=== PATIENT | female | born 1970 | race Caucasian/White ===

== ENCOUNTER 2020-12-24 13:19 | Observation (INO) ==
[2020-12-24] MEDS ORDERED: ALBUT/IPRATROP 3MG/0.5MG NEB 3 ML VIAL NEB ONE ×2 (16:23→18:29)
[2020-12-24] MEDS ORDERED: SODIUM CHLORIDE 0.9% 1000ML 1,000 ML IV STA (16:23)
[2020-12-24] MEDS ORDERED: methylPREDNISolone 125 MG/2 ML VIAL IV STA (16:23)
[2020-12-24] MEDS ORDERED: guaiFENesin 600 MG TABCR PO STA (16:23)
--- NOTE | 2020-12-24 16:37 | Emergency Department Note ---
Impression & Plan COPD exacerbation, Acute dyspnea, Chest tightness ED Provider Note NAME: ISAIAS OLEARY AGE: 50 SEX: F ARRIVES VIA: Walk-In INFORMANT: Patient, ED PROVIDER(S): Andrew Leonard MD CHIEF COMPLAINT: Shortness of breath PLAN: Disposition: Admit MEDICAL DECISION MAKING: The patient is a pleasant 50 woman who presents to the emergency department with worsening shortness of breath, cough and wheezing in the setting of having the development of COPD/asthma symptoms over numerous months where she was started on inhaler by her PCP but reports worsening over the past couple of days with development of yellow-tinged thick sputum. She denies fevers, nausea, vomiting, diarrhea or urinary symptoms. On arrival the patient is uncomfortable mildly dyspneic with mild increased work of breathing but no acute distress, afebrile stable vital signs. She appears clinically dry. She has scattered wheezes and rhonchi. Abdomen is benign. EKG without overt acute ischemia. CXR negative for acute cardiopulmonary process. WBC 14K. H/H and platelets wnl. Chemistry without acidosis. Electrolytes unremarkable. LFTs without significant abnormality. Troponin negative/undetectable. Covid-19 PCR negative. Patient was treated with IVF hydration, solumedrol, guaifenesin, and hour-long continuous duoneb. Upon re-evaluation the patient did have improvement but still with diffuse wheezes and mild WOB. She was given Azithromycin for COPD exa cerbation given severity with yellow thick sputum. A second hour-long continuous duoneb was administered and she has additional improve but still with diffuse wheezes. Thus, she did agree with plan for admission for further management. Case was discussed with Dr. Man, [facility] hospitalist, who will evaluate the patient for admission. Triage Nursing notes reviewed and agree them. Prior medical records reviewed Vital Signs: reviewed and remarkable for no significant abnormalities Differential diagnosis: Reactive airway disease, pneumonia, pneumothorax, COPD, CHF, infections, cardiac ischemia, pulmonary embolism, musculoskeletal, gastrointestinal, as well as other pathologies. ER treatment provided: See below. Diagnostics interpreted by me: ECG: NSR, 83 bpm, no ectopy, no overt ST elevation or depression. Cardiac Monitoring: An order for continuous cardiac monitoring was placed and demonstrated NSR, 83 bpm, no ectopy. Laboratory studies: See below Imaging studies: See below Consultation(s): Case was discussed with Dr. Man, [facility] hospitalist, who will evaluate the patient for admission. HPI: The patient is a pleasant 50 woman who presents emergency department with worsening shortness of breath, cough and wheezing in the setting of having the development of COPD/asthma symptoms over numerous months where she was started on inhaler by her PCP but reports worsening over the past couple of days with development of yellow-tinged thick sputum. She denies fevers, nausea, vomiting, diarrhea or urinary symptoms. ROS: See above HPI for pertinent positives & negatives. A total of 10 systems reviewed and were otherwise negative. PAST MEDICAL HISTORY:See Below PAST SURGICAL HISTORY:See Below FAMILY HISTORY:See Below SOCIAL HISTORY:See Below HOME MEDICATIONS:See Below ALLERGIES:See Below VITALS:See Below PHYSICAL EXAMINATION: GENERAL: Awake, alert, uncomfortable-appearing, in no distress HENT: Normocephalic, atraumatic. Oropharynx with dry mucous membranes and otherwise unremarkable. EYES: Normal conjunctiva. Sclera non-icteric. NECK: Supple. No nuchal rigidity. FROM. No JVD. RESPIRATORY: Scattered wheezes and rhonchi. Mildly dyspneic with mild increased work of breathing CARDIAC: Regular rate, normal rhythm. Extremities warm and well perfused. Pulses equal. ABDOMEN: Soft, non-distended. No tenderness to palpation. No rebound or guarding. No masses. RECTAL: Deferred. MUSCULOSKELETAL: Chest examination reveals no tenderness. The back is sy mmetrical on inspection without obvious abnormality. There is no CVA tenderness to palpation. No joint edema. LOWER EXTREMITIES: Calves are equal size bilaterally and non-tender. No edema. No discoloration. NEURO: Normal sensorium. No sensory or motor deficits noted. SKIN: No rash or jaundice noted. ED COURSE: Critical Care: I have personally spent greater than 35 minutes of critical care time in the direct management of this patient. This includes bedside care, interpretation of diagnostic studies, and testing, discussion with consultants, patient, and family members, and other required patient management activities. This 35 minutes is in excess of all separately billable procedures. Andrew Leonard MD Past Med/Surg History Social History Smoking Status: Never smoker Hx Alcohol Use: No Hx Substance Use: No Preferred Language: Telugu Communication Ability: Effective Undercoat Sprayer Required: No Beliefs That Will Affect Care: None Current Living Situation: Family Current Living Situation Comment: own home Other Information That Helps Us Care for You: No Feels Safe at Home: Yes Assistive Devices: None Allergies Allergies Allergy/AdvReac Type Severity Reaction Status Date / Time metronidazole AdvReac Intermediate NAUSEA AND Verified 06/09/20 12:01 VOMITING codeine AdvReac ITCHY AND Verified 06/09/20 12:02 HEADACHE Home Meds Home Medications Medication Instructions Recorded Confirmed prednisone 5 mg tablet 5 mg PO DAILY 12/24/20 12/24/20 Previous Rx's Medication Instructions Recorded albuterol sulfate 90 mcg/actuation 2 inh INHALATION Q4H PRN #8.5 g 06/09/20 aerosol inhaler benzonatate 100 mg capsule 100 mg PO TID PRN #20 cap 06/09/20 (Humble Armenta) Results & Data (ED) Vital Signs Vital Signs - 24 hr 12/24/20 13:30 12/24/20 16:50 12/24/20 16:57 Temperature 36.2 C L Temperature Source Temporal Artery Scan Pulse Rate 91 H 92 H 86 Pulse Rate [Apical] 86 Pulse Rate [Right Finger] Pulse Rate from SpO2 Sensor 93 H Pulse Rhythm Regular Pulse Rhythm [Apical] Regular Pulse Strength [Apical] Respiratory Rate 32 H 24 26 H Respiratory Effort / Characteristics Spontaneous Spontaneous Labored Respiratory Depth Normal Normal Respiratory Pattern Regular Blood Pressure 153/80 H Blood Pressure [Left Arm] 152/101 H Blood Pressure Mean 104 Blood Pressure Mean [Left Arm] 118 Blood Pressure Position Sitting Blood Pressure Position [Left Arm] Sitting Pulse Oximetry 96 100 96 Oxygen Delivery Method Room Air Oxymask Oxygen Flow Rate 2 Sepsis Recent Fever Within 48 Hours No Sepsis New/Unexplained Change in Mental Status N/A Sepsis Action Taken by Nursing No Action Required 12/24/20 16:59 12/24/20 17:00 12/24/20 18:00 Temperature Temperature Source Pulse Rate 88 Pulse Rate [Apical] 86 Pulse Rate [Right Finger] 91 H Pulse Rate from SpO2 Sensor 85 Pulse Rhythm Pulse Rhythm [Apical] Regular Pulse Strength [Apical] Respiratory Rate 20 24 24 Respiratory Effort / Characteristics Spontaneous Labored Short of Breath Non-Labored Spontaneous Respiratory Depth Normal Respiratory Pattern Blood Pressure Blood Pressure [Left Arm] 156/106 H Blood Pressure Mean Blood Pressure Mean [Left Arm] 122 Blood Pressure Position Blood Pressure Position [Left Arm] Pulse Oximetry 99 94 Oxygen Delivery Method Nasal Cannula Room Air Oxygen Flow Rate 4 Sepsis Recent Fever Within 48 Hours Sepsis New/Unexplained Change in Mental Status Sepsis Action Taken by Nursing 12/24/20 18:06 12/24/20 18:58 12/24/20 19:00 Temperature Temperature Source Pulse Rate 94 H 84 Pulse Rate [Apical] 91 H Pulse Rate [Right Finger] Pulse Rate from SpO2 Sensor 94 H 85 Pulse Rhythm Pulse Rhythm [Apical] Regular Pulse Strength [Apical] Normal Respiratory Rate 29 H 22 Respiratory Effort / Characteristics Short of Breath Respiratory Depth Respiratory Pattern Blood Pressure Blood Pressure [Left Arm] 135/88 Blood Pressure Mean Blood Pressure Mean [Left Arm] 103 Blood Pressure Position Blood Pressure Position [Left Arm] Pulse Oximetry 95 95 95 Oxygen Delivery Method Room Air Oxygen Flow Rate Sepsis Recent Fever Within 48 Hours Sepsis New/Unexplained Change in Mental Status Sepsis Action Taken by Nursing 12/24/20 19:04 12/24/20 20:00 12/24/20 20:55 Temperature Temperature Source Pulse Rate 102 H Pulse Rate [Apical] 90 103 H Pulse Rate [Right Finger] Pulse Rate from SpO2 Sensor 102 H Pulse Rhythm Pulse Rhythm [Apical] Regular Pulse Strength [Apical] Normal Respiratory Rate 20 25 H 30 H Respiratory Effort / Characteristics Non-Labored Spontaneous Short of Breath Respiratory Depth Respiratory Pattern Blood Pressure Blood Pressure [Left Arm] 144/80 H Blood Pressure Mean Blood Pressure Mean [Left Arm] 101 Blood Pressure Position Blood Pressure Position [Left Arm] Pulse Oximetry 97 97 95 Oxygen Delivery Method Room Air Room Air Oxygen Flow Rate Sepsis Recent Fever Within 48 Hours Sepsis New/Unexplained Change in Mental Status Sepsis Action Taken by Nursing 12/24/20 21:00 Temperature Temperature Source Pulse Rate 105 H Pulse Rate [Apical] Pulse Rate [Right Finger] Pulse Rate from SpO2 Sensor 105 H Pulse Rhythm Pulse Rhythm [Apical] Pulse Strength [Apical] Respiratory Rate 28 H Respiratory Effort / Characteristics Respiratory Depth Respiratory Pattern Blood Pressure Blood Pressure [Left Arm] Blood Pressure Mean Blood Pressure Mean [Left Arm] Blood Pressure Position Blood Pressure Position [Left Arm] Pulse Oximetry 97 Oxygen Delivery Method Oxygen Flow Rate Sepsis Recent Fever Within 48 Hours Sepsis New/Unexplained Change in Mental Status Sepsis Action Taken by Nursing Laboratory Data Attestation: I reviewed the patient's lab results. Result diagrams: 12/24/20 16:58 12/24/20 16:58 Lab Results 12/24/20 12/24/20 12/24/20 Range/Units 16:57 16:58 16:58 WBC 14.09 H (4.8-10.8) K/uL RBC 5.06 (4.2-5.4) M/uL Hgb 14.3 (12.0-16.0) g/dL Hct 42.5 (37-47) % MCV 84.0 (80-100) fL MCH 28.3 (25-34) pg MCHC 33.6 (32-36) g/dL RDW Std Deviation 43.4 (36.4-46.3) fL RDW Coeff of Mark 14.1 (11.5-14.5) % Plt Count 275 (130-400) K/uL MPV 10.8 H (7.4-10.4) fL Immature Gran % (Auto) 0.2 % Neut % (Auto) 80.2 % Lymph % (Auto) 8.7 % Wy[place] % (Auto) 5.3 % Eos % (Auto) 5.5 % Baso % (Auto) 0.1 % Neut # (Auto) 11.29 H (1.4-6.5) K/uL Lymph # (Auto) 1.23 (1.2-3.4) K/uL Wythe # (Auto) 0.75 H (0.11-0.59) K/uL Eos # (Auto) 0.77 H (0-0.5) K/uL Baso # (Auto) 0.02 (0-0.2) K/uL Immature Gran # (Auto) 0.03 H (0.00-0.02) K/uL Sodium 140 (136-145) mmol/L Potassium 3.7 (3.5-5.1) mmol/L Chloride 105 (98-107) mmol/L Carbon Dioxide 26 (21-32) mmol/L Anion Gap 9.0 (3-11) BUN 4 L (7-18) mg/dl Creatinine 0.79 (0.6-1.2) mg/dl Est Cr Clr Drug Dosing 108.5 ml/min Est GFR ( Amer) 101.2 ml/min Est GFR (Non-Af Amer) 87.3 ml/min BUN/Creatinine Ratio 5.4 L (10-20) Glucose 108 H (70-99) mg/dl Calcium 9.6 (8.5-10.1) mg/dl Total Bilirubin 0.3 (0.2-1) mg/dl AST 12 L (15-37) U/L ALT 32 (12-78) U/L Alkaline Phosphatase 74 (45-117) U/L Troponin I < 0.015 (0-0.045) ng/ml Total Protein 7.7 (6.4-8.2) gm/dl Albumin 4.1 (3.4-5.0) gm/dl Globulin 3.6 (2.5-4.0) gm/dl Albumin/Globulin Ratio 1.1 (0.9-2) Lipase 93 (73-393) U/L HCG, Qual Negative (Negative) COVID-19 Eval Order SARS-CoV-2 (PCR) (Negative) 12/24/20 12/24/20 Range/Units 17:10 17:10 WBC (4.8-10.8) K/uL RBC (4.2-5.4) M/uL Hgb (12.0-16.0) g/dL Hct (37-47) % MCV (80-100) fL MCH (25-34) pg MCHC (32-36) g/dL RDW Std Deviation (36.4-46.3) fL RDW Coeff of Mark (11.5-14.5) % Plt Count (130-400) K/uL MPV (7.4-10.4) fL Immature Gran % (Auto) % Neut % (Auto) % Lymph % (Auto) % Wy[place] % (Auto) % Eos % (Auto) % Baso % (Auto) % Neut # (Auto) (1.4-6.5) K/uL Lymph # (Auto) (1.2-3.4) K/uL Wythe # (Auto) (0.11-0.59) K/uL Eos # (Auto) (0-0.5) K/uL Baso # (Auto) (0-0.2) K/uL Immature Gran # (Auto) (0.00-0.02) K/uL Sodium (136-145) mmol/L Potassium (3.5-5.1) mmol/L Chloride (98-107) mmol/L Carbon Dioxide (21-32) mmol/L Anion Gap (3-11) BUN (7-18) mg/dl Creatinine (0.6-1.2) mg/dl Est Cr Clr Drug Dosing ml/min Est GFR ( Amer) ml/min Est GFR (Non-Af Amer) ml/min BUN/Creatinine Ratio (10-20) Glucose (70-99) mg/dl Calcium (8.5-10.1) mg/dl Total Bilirubin (0.2-1) mg/dl AST (15-37) U/L ALT (12-78) U/L Alkaline Phosphatase (45-117) U/L Troponin I (0-0.045) ng/ml Total Protein (6.4-8.2) gm/dl Albumin (3.4-5.0) gm/dl Globulin (2.5-4.0) gm/dl Albumin/Globulin Ratio (0.9-2) Lipase (73-393) U/L HCG, Qual (Negative) COVID-19 Eval Order Covid19 at [facility] SARS-CoV-2 (PCR) NEGATIVE (Negative) Administered Medications Ceftriaxone Sodium 2,000 mg/ (Dextrose) 70 mls @ 100 mls/hr IV Q24H AZUCENA; Protocol Stop: 01/01/21 01:59 Last Infusion: 12/25/20 02:54 Dose: 0 mls/hr Documented by: [id number] Admin: 12/25/20 01:53 Dose: 100 mls/hr Documented by: [id number] Ipratropium Morrison (Ipratropium Morrison Neb Soln 0.02% 2.5 Ml Vial) 0.5 mg INH Q6R AZUCENA Stop: 01/24/21 00:59 Last Admin: 12/25/20 00:54 Dose: 0.5 mg Documented by: [id number] Levalbuterol HCl (Levalbuterol 1.25mg/0.5ml Neb) 1.25 mg INH Q6R AZUCENA Stop: 01/24/21 00:59 Last Admin: 12/25/20 00:54 Dose: 1.25 mg Documented by: [id number] Discontinued Medications Albuterol (Albut/Ipratrop 3mg/0.5mg Neb 3 Ml Vial) 12 ml NEB ONE ONE Stop: 12/24/20 16:24 Last Admin: 12/24/20 16:59 Dose: 12 ml Documented by: [id number] Albuterol (Albut/Ipratrop 3mg/0.5mg Neb 3 Ml Vial) 12 ml NEB ONE ONE Stop: 12/24/20 18:30 Last Admin: 12/24/20 19:04 Dose: 12 ml Documented by: [id number] Azithromycin (Azithromycin 250 Mg Tab) 500 mg PO NOW ONE Stop: 12/24/20 18:30 Last Admin: 12/24/20 18:44 Dose: 500 mg Documented by: [id number] Guaifenesin (Guaifenesin 600 Mg Tabcr) 600 mg PO NOW STA Stop: 12/24/20 16:24 Last Admin: 12/24/20 17:03 Dose: 600 mg Documented by: [id number] Sodium Chloride (Nss 1000ml) 1,000 mls @ 999 mls/hr IV .Q1H1M STA Stop: 12/24/20 17:23 Last Infusion: 12/24/20 19:34 Dose: 0 mls/hr Documented by: [id number] Admin: 12/24/20 17:03 Dose: 999 mls/hr Documented by: [id number] Acetaminophen (Ofirmev) 1,000 mg in 100 mls @ 400 mls/hr IV NOW STA Stop: 12/24/20 19:15 Last Infusion: 12/24/20 19:42 Dose: 0 mls/hr Documented by: [id number] Admin: 12/24/20 19:26 Dose: 400 mls/hr Documented by: [id number] Ketorolac Tromethamine (Ketorolac Tromethamine 15 Mg/Ml Vial) 15 mg IV NOW ONE Stop: 12/24/20 23:25 Last Admin: 12/24/20 23:37 Dose: 15 mg Documented by: [id number] Methylprednisolone (Methylprednisolone 125 Mg/2 Ml Vial) 125 mg IV NOW STA Stop: 12/24/20 16:24 Last Admin: 12/24/20 17:03 Dose: 125 mg Documented by: [id number] Methylprednisolone (Methylprednisolone 40 Mg/Ml Vial) Confirm Administered Dose 40 mg .ROUTE .STK-MED ONE Stop: 12/24/20 22:38 Last Admin: 12/24/20 22:43 Dose: Not Given Documented by: [id number] Imaging Data Radiologist's Impression: Chest X-Ray 12/24/20 16:23 XR chest 1V portable CLINICAL HISTORY: Atypical chest pain TECHNIQUE: Single frontal radiograph of the chest was obtained. Comparison: Comparison is made to chest one view 06/09/2020 FINDINGS: No lines and tubes are seen. The cardiomediastinal silhouette is normal. The lungs are clear. No evidence of pleural effusion or pneumothorax. IMPRESSION: No acute chest disease. ACT 112: Negative or not required by law. Electronically signed by: Braulio Marr M.D. 12/24/2020 4:48 PM Discharge Plan Visit Data Chief Complaint: Shortness of Breath/Dyspnea Stated Complaint: SOB, CHEST TIGHTNESS ED Provider: Andrew Leonard Discharge Problem: COPD exacerbation, Acute dyspnea, Chest tightness Patient Disposition: Admitted As Inpatient Discharge Instructions Interventions: ED Discharge Assessment Last Done: 12/24/20 23:24
--- NOTE | 2020-12-24 16:50 | XRay Report ---
XR chest 1V portable CLINICAL HISTORY: Atypical chest pain TECHNIQUE: Single frontal radiograph of the chest was obtained. Comparison: Comparison is made to chest one view 06/09/2020 FINDINGS: No lines and tubes are seen. The cardiomediastinal silhouette is normal. The lungs are clear. No evid ence of pleural effusion or pneumothorax. IMPRESSION: No acute chest disease. ACT 112: Negative or not required by law. Electronically signed by: Braulio Marr M.D. 12/24/2020 4:48 PM
[2020-12-24 17:04] LABS: Basophils # (auto) 0.02 K/uL (0-0.2); Basophils % (auto) 0.1 %; Eosinophils # (auto) 0.77 K/uL (0-0.5); Eosinophils % (auto) 5.5 %; Hematocrit (blood only) 42.5 % (37-47); Hemoglobin 14.3 g/dL (12.0-16.0); Immature Granulocytes # (auto) 0.03 K/uL (0.00-0.02); Immature Granulocytes % (auto) 0.2 %; Lymphocytes # (auto) 1.23 K/uL (1.2-3.4); Lymphocytes % (auto) 8.7 %; Mean Corpuscular Hemoglobin 28.3 pg (25-34); Mean Corpuscular Hgb Conc 33.6 g/dL (32-36); Mean Platelet Volume 10.8 fL (7.4-10.4); Monocytes # (auto) 0.75 K/uL (0.11-0.59); Monocytes % (auto) 5.3 %; Neutrophils # (auto) 11.29 K/uL (1.4-6.5); Neutrophils % (auto) 80.2 %; Platelet Count 275 K/uL (130-400); RDW Coefficient of Variation 14.1 % (11.5-14.5); RDW Standard Deviation 43.4 fL (36.4-46.3); Red Blood Count 5.06 M/uL (4.2-5.4); White Blood Count 14.09 K/uL (4.8-10.8)
[2020-12-24 17:21] LABS: Alanine Aminotransferase 32 U/L (12-78); Albumin Level 4.1 gm/dl (3.4-5.0); Aspartate Aminotransferase 12 U/L (15-37); BUN Creatinine Ratio 5.4 (10-20); Blood Urea Nitrogen 4 mg/dl (7-18); Calcium 9.6 mg/dl (8.5-10.1); Carbon Dioxide 26 mmol/L (21-32); Chloride 105 mmol/L (98-107); Creatinine Clr Calc Pharmacy 108.5 ml/min; Est GFR (African American) 101.2 ml/min; Est GFR (Non-African American) 87.3 ml/min; Glucose 108 mg/dl (70-99); Lipase 93 U/L (73-393); Potassium 3.7 mmol/L (3.5-5.1); Sodium 140 mmol/L (136-145)
[2020-12-24 17:26] LABS: Albumin Globulin Ratio 1.1 (0.9-2); Alkaline Phosphatase 74 U/L (45-117); Bilirubin,Total 0.3 mg/dl (0.2-1); Globulin 3.6 gm/dl (2.5-4.0); Total Protein 7.7 gm/dl (6.4-8.2); Troponin I < 0.015 ng/ml (0-0.045)
[2020-12-24 17:28] LABS: Pregnancy Test, Serum Negative (Negative)
[2020-12-24] MEDS ORDERED: AZITHROMYCIN 250 MG TAB PO ONE (18:29)
[2020-12-24] MEDS ORDERED: ACETAMINOPHEN 1,000 MG/100 ML VIAL IV STA (19:01)
[2020-12-24] MEDS ORDERED: KETOROLAC TROMETHAMINE 15 MG/ML VIAL IV ONE (23:24)
--- NOTE | 2020-12-24 23:25 | History and Physical Report ---
DATE OF ADMISSION: 12/24/2020. CHIEF COMPLAINT: Shortness of breath. HISTORY OF PRESENT ILLNESS: A 50-year-old female with past medical history significant for irritable bowel syndrome, GERD, obesity, degenerative disk disease, who presents with shortness of breath and cough. The patient says in February she was having sob symptoms. She was treated with Z-SALOMON and prednisone in the past and last couple of weeks ago, she was placed on prednisone 5 mg daily, but again her symptoms got worse in the last few days and today morning, she was feeling very short of breath, went to PCP's office, and they sent her here. She was initially tachypneic and tachycardic, but after steroids and breathing treatment, she is feeling better now. Denies any fevers. Earlier, she was feeling chest tightness like someone sitting on the chest, but it is better now. The chest pain was more with taking deep breath and cough. Denies any nausea, vomiting. No abdominal pain. Normal bowel and bladder movements. No blood in the stools or black stools. No hematuria. Sometimes she has orthopnea. She is ambulating okay. She has headache from shortness of breath. No blurred visions, no earache, no runny nose, no sore throat. Appetite is not that great. ALLERGIES: METRONIDAZOLE, CODEINE. PAST MEDICAL HISTORY: As mentioned above. PAST SURGICAL HISTORY: Ligation of oviducts, removal of ovaries, cholecystectomy. MEDICATIONS: The patient is on albuterol 2 puffs inhalation q. 4 hours p.r.n., Tessalon Perles 100 mg p.o. t.i.d., prednisone 5 mg p.o. daily. FAMILY HISTORY: Significant for father has diabetes, hypertension, obesity; mother has obesity, diabetes, hypertension. SOCIAL HISTORY: Single, daughter lives with her. Alcohol occasionally. 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 REVIEW OF SYSTEMS: As per HPI. Rest of the review of systems is negative. PHYSICAL EXAMINATION: GENERAL: The patient is obese, not in acute distress. VITAL SIGNS: Temperature 36.2, pulse 103, respiratory rate 30, blood pressure 144/80, oxygen 95% on room air. HEENT: Pupils equal, round and reactive to light. Oral mucosa moist. NECK: No JVD, no neck masses. CARDIOVASCULAR: S1 and S2 heard, tachycardia. No murmurs. RESPIRATORY SYSTEM: Normal AP diameter. No accessory muscle use, but bilateral rhonchi and wheezing heard. ABDOMEN: Soft, bowel sounds present, nontender, no distention. CENTRAL NERVOUS SYSTEM: Cranial nerves II-XII grossly intact, nonfocal. EXTREMITIES: Trace pedal edema, no erythema seen. LABORATORY DATA: WBC 14, hemoglobin 14.3, hematocrit 42.5, platelets 275. Sodium 140, potassium 3.7, chloride 105, bicarbonate 26, BUN 4, creatinine 0.7, serum glucose 108, calcium 9.6, total bilirubin 0.3, AST 12, ALT 32, alkaline phosphatase 74. Troponin I less than 0.015. Lipase 93. HCG qualitative negative. SARS-CoV-2 PCR negative. IMAGING DATA: Chest x-ray, no acute disease in the chest. EKG: Normal sinus rhythm, rate of 83, no significant change was found. ASSESSMENT AND PLAN: This is a 50-year-old female who presents with shortness of breath. 1. 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 Will treat with steroids, breathing treatments, empiric antibiotics, and consult pulmonary in the a.m. for further recommendations. Monitor in the tele floor. 2. Irritable bowel syndrome: Will monitor. 3. Obesity: Needs counseling. 4. Deep venous thrombosis prophylaxis: Lovenox. DISPOSITION: Admit to tele floor. Expect to discharge home and follow up with family doctor. Level 1 full code. Job ID: [id number] [facility]
[2020-12-25] MEDS ORDERED: ONDANSETRON INJ 2 MG/ML 2 ML VIAL IV PRN (00:32)
[2020-12-25] MEDS ORDERED: LEVALBUTEROL HCL 1.25 MG/3 ML NEB NEB PRN (00:32)
[2020-12-25] MEDS ORDERED: NITROGLYCERIN SL 0.4 MG/TAB TAB SL PRN (00:32)
[2020-12-25] MEDS ORDERED: ACETAMINOPHEN 325 MG TAB PO PRN (00:32)
[2020-12-25] MEDS: IPRATROPIUM BROMIDE NEB SOLN 0.02% 2.5 ML VIAL INH SCH ×4 (00:54→19:00)
[2020-12-25] MEDS: LEVALBUTEROL 1.25MG/0.5ML NEB INH SCH ×4 (00:54→19:00)
[2020-12-25] MEDS ORDERED: XOPENEX/ATROVENT 1.25mg/0.5MG NEB COMBO NEB SCH (01:00)
[2020-12-25] MEDS ORDERED: cefTRIAXone SODIUM 2,000 MG in DEXTROSE 5% 50 ML IV SCH (02:00)
[2020-12-25] MEDS ORDERED: KETOROLAC 30 MG/ML VIAL IV ONE (06:05)
[2020-12-25] MEDS: ENOXAPARIN INJ 40 MG/0.4 ML SYR SQ SCH ×2 (06:22→18:18)
[2020-12-25 06:33] LABS: Eosinophils # (auto) 0.01 K/uL (0-0.5); Eosinophils % (auto) 0.1 %; Hematocrit (blood only) 40.7 % (37-47); Hemoglobin 13.6 g/dL (12.0-16.0); Immature Granulocytes # (auto) 0.05 K/uL (0.00-0.02); Immature Granulocytes % (auto) 0.4 %; Lymphocytes # (auto) 0.84 K/uL (1.2-3.4); Lymphocytes % (auto) 5.9 %; Mean Corpuscular Hemoglobin 27.7 pg (25-34); Mean Corpuscular Hgb Conc 33.4 g/dL (32-36); Mean Corpuscular Volume 82.9 fL (80-100); Monocytes # (auto) 0.23 K/uL (0.11-0.59); Monocytes % (auto) 1.6 %; Neutrophils # (auto) 13.02 K/uL (1.4-6.5); Platelet Count 273 K/uL (130-400); RDW Coefficient of Variation 14.3 % (11.5-14.5); RDW Standard Deviation 43.6 fL (36.4-46.3); Red Blood Count 4.91 M/uL (4.2-5.4); White Blood Count 14.15 K/uL (4.8-10.8)
[2020-12-25 07:06] LABS: Blood Urea Nitrogen 7 mg/dl (7-18); Calcium 9.9 mg/dl (8.5-10.1); Carbon Dioxide 24 mmol/L (21-32); Chloride 105 mmol/L (98-107); Creatinine Clr Calc Pharmacy 111.3 ml/min; Est GFR (African American) 104.3 ml/min; Glucose 128 mg/dl (70-99); Potassium 3.7 mmol/L (3.5-5.1); Sodium 138 mmol/L (136-145)
[2020-12-25 07:10] LABS: Troponin I < 0.015 ng/ml (0-0.045)
[2020-12-25] MEDS ORDERED: PROMETHAZINE HCL 12.5 MG in SODIUM CHLORIDE 0.9% 50 ML IV STA (07:14)
[2020-12-25] MEDS ORDERED: PROMETHAZINE HCL 12.5 MG in SODIUM CHLORIDE 0.9% 50 ML IV PRN (07:14)
[2020-12-25] MEDS: methylPREDNISolone 40 MG in SYRINGE 0 ML IV SCH ×3 (07:43→23:33)
[2020-12-25] MEDS ORDERED: SUMAtriptan succinate 50 MG TAB PO PRN (07:43)
[2020-12-25] MEDS ORDERED: SUMAtriptan succinate 50 MG TAB PO STA (07:53)
--- NOTE | 2020-12-25 11:06 | Electrocardiogram Report ---
Test Reason : Blood Pressure : / mmHG Vent. Rate : 083 BPM Atrial Rate : 083 BPM P-R Int : 150 ms QRS Dur : 104 ms QT Int : 356 ms P-R-T Axes : 005 055 052 degrees QTc Int : 418 ms Normal sinus rhythm Normal ECG When compared with ECG of 09-JUN-2020 11:18, No significant change was found Confirmed by Davon Mohr ([id number]) on 12/25/2020 11:06:31 AM Referred By: REFERRED SELF Confirmed By:Omar Mohr
[2020-12-25] MEDS: PANTOprazole 40 MG TAB PO SCH (12:15)
--- NOTE | 2020-12-25 12:39 | Hospitalist Progress Note ---
Date of Service December 25, 2020 Assessment & Plan (1) COPD exacerbation: Plan: ASSESSMENT AND PLAN: This is a 50-year-old female who presents with shortness of breath. 1. Possible COPD exacerbation - CXR: No acute chest disease. - continue Solumedrol, Nebs, Doxycycline PO Pulm consulted 2. Irritable bowel syndrome: - n/v improving 3. Migraine Headache - Imitrex PRN 3. Obesity: Needs counseling. 4. Deep venous thrombosis prophylaxis: Lovenox. Disposition pending anticipate d/c home when medically stable Admission and Anticipated Discharge Date Admission Date: December 24, 2020 Subjective ff up for shortness of breath, wheezing, etc seen resting in bed, sleeping but easily awakened states she feels improved compared to yesterday breathing improving still has occasional dry cough no chest pain, dyspnea, palpitations, dizziness no other symptoms Review of Systems Review of Systems: all noted and negative except for above Physical Exam Physical Exam: General- oriented x 3, not in distress, speaks in sentences with no effort or accessory muscle use Head- atraumatic Eyes- PERRL, EOMI, anicteric ENT- oropharynx clear Neck- supple, no JVD, no adenopathy, no thyromegaly; carotids +2/2, no bruits appreciated Lungs- (+) bilateral scattered wheezing Heart- normal rate, regular rhythm; no murmur, no gallop, no rub appreciated Abdomen- normal bowel sounds, nondistended, soft, nontender, no masses or hepatosplenomegaly Extremities- no pretibial edema, no calf tenderness; peripheral pulses intact Neuro- alert, oriented x 3; CN 2-12 grossly intact; motor 5/5 bilaterally;sensation 100% on all extremities; no other gross focal neurologic deficits Skin- warm & dry Results & Data Results & Data ([facility]) Vital Signs (Past 12 Hours) Vital Signs Temp Pulse Pulse Resp BP Pulse Ox 12/25/20 11:58 36.6 C 89 17 134/85 91 12/25/20 08:00 87 12/25/20 07:25 36.4 C L 88 20 136/75 91 12/25/20 07:23 89 18 91 12/25/20 03:20 36.6 C 87 18 151/90 H 90 12/25/20 02:26 105 H 12/25/20 00:57 96 H 20 92 12/25/20 00:48 36.4 C L 90 16 141/86 H 91 all noted and reviewed including below
[2020-12-25] MEDS: DOXYCYCLINE HYCLATE 100 MG CAP PO SCH (20:05)
[2020-12-25] MEDS ORDERED: diphenhydrAMINE Capsule 25 MG CAP PO ONE (23:37)
[2020-12-26] MEDS: LEVALBUTEROL 1.25MG/0.5ML NEB INH SCH ×4 (03:19→19:15)
[2020-12-26] MEDS: IPRATROPIUM BROMIDE NEB SOLN 0.02% 2.5 ML VIAL INH SCH ×4 (03:19→19:17)
[2020-12-26] MEDS: BENZONATATE 100 MG CAPSULE PO PRN ×2 (05:22→22:27)
[2020-12-26] MEDS: ENOXAPARIN INJ 40 MG/0.4 ML SYR SQ SCH ×2 (05:23→17:45)
[2020-12-26] MEDS: methylPREDNISolone 40 MG in SYRINGE 0 ML IV SCH ×2 (08:08→19:58)
[2020-12-26] MEDS: PANTOprazole 40 MG TAB PO SCH (08:08)
[2020-12-26] MEDS: DOXYCYCLINE HYCLATE 100 MG CAP PO SCH ×2 (08:08→19:57)
[2020-12-26] MEDS ORDERED: hydrALAZINE HCL 20 MG/ML VIAL IV PRN (08:38)
[2020-12-26] MEDS ORDERED: FLUTICASONE/VILANTEROL 100/25MCG 14 PUFFS/INHALER INH SCH (09:00)
[2020-12-26] MEDS ORDERED: FLUTICASONE FUROATE 100MCG 14 PUFFS/INHALER INH ONE (13:02)
[2020-12-26] MEDS ORDERED: PANTOprazole 40 MG TAB PO SCH (13:15)
--- NOTE | 2020-12-26 13:16 | Pulmonary Consultation ---
Date of Consultation December 26, 2020 Assessment & Plan (1) Acute asthma exacerbation: (2) Dyspnea: (3) Cough: (4) Peripheral eosinophilia: (5) Hiatal hernia: 50-year-old female with a history of GERD, hiatal hernia, obesity and irritable bowels presenting to the hospital due to shortness of breath. I suspect that the patient has asthma which may be work-related. She has numerous triggers in her life including coal heating at home, owning a pet cat and working in a pj/smokey environment. I advised her to avoid known triggers. I am going to increase Breo Ellipta to 200 mcg daily and add Incruse Ellipta. We will give her a one-time dose of Arnuity 100 mcg. I have decreased methylprednisone to 40 mg twice daily. Consider transitioning to p.o. prednisone the next 1 to 2 days. She needs case management to assist her with getting insurance so that she can afford her maintenance inhalers. She should be discharged on a high-dose ICS plus LABA inhaler such as Symbicort, Dulera, Breo or other. This was discussed with her respiratory therapist and nurse. I am going to start her on montelukast 10 mg daily in addition to the therapy as above. She did have an elevated peripheral eosinophil count and she likely has Th2 mediated asthma. Can consider outpatient IgE level testing, allergy testing and referral to allergy/immunology. Started Mucinex 600 mg twice daily for symptomatic cough. She also has a history of a hiatal hernia based on her prior CT chest. She denies overt GERD symptoms, but I feel that she should be on a PPI especially while on high doses of prednisone. 40 mg Protonix started daily. She should be able to be discharged in the next 1 to 2 days. I will have her set up for an appointment with me in the next 2 weeks or so. Thank you for the consult. History of Present Illness Reason for Consultation: Asthma Attending Physician: Shiv De La Rosa MD History of Present Illness 50-year-old female with a past medical history of irritable bowel syndrome, GERD, obesity and DJD who presents to the hospital due to increasing cough and shortness of breath. She has been having cough for the past year. 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 She occasionally uses a respirator at work, but not constantly. She also notes that she frequently takes a respirator off. She has coal heating at home. She feels that her work environment has triggered her symptoms. She also works in a bar where people smoke cigarettes. She has shortness of breath with minimal exertion. She feels like her cough has improved since her hospitalization, but it is still present. She occasionally produces sputum. She denies any rhinorrhea at present. No fevers or chills. She cannot afford any maintenance inhalers as she does not have insurance. She is currently on Workmen's Comp. She uses albuterol inhaler at home. She notes lately she has been using it up to 15 times per day. Additionally, she does have a cat at home. She denies any allergies. She notes that her outpatient doctor put her on 5 mg prednisone daily and a Z-Avery. She did previously smoke cigarettes roughly 30 years ago socially. This only lasted for a few months. Work-up in the hospital has been negative for pneumonia. Procalcitonin is unremarkable. Chest x-ray without evidence of infiltrate. Echo did show mild concentric LVH. Otherwise normal LVEF. She does have elevated eosinophil counts and her eosinophil count was up to 770 on her CBC on 12/24/2020. Allergies Allergy/AdvReac Type Severity Reaction Status Date / Time metronidazole AdvReac Intermediate NAUSEA AND Verified 06/09/20 12:01 VOMITING codeine AdvReac ITCHY AND Verified 06/09/20 12:02 HEADACHE Home Medications Medication Instructions Recorded Confirmed Type albuterol sulfate 90 mcg/actuation 2 inh INHALATION Q4H PRN #8.5 g 06/09/20 12/24/20 Rx aerosol inhaler benzonatate 100 mg capsule 100 mg PO TID PRN #20 cap 06/09/20 12/24/20 Rx (Tessalon Perles) prednisone 5 mg tablet 5 mg PO DAILY 12/24/20 12/24/20 History Patient History Medical History (Updated 12/26/20 @ 13:09 by Feliz Haynes MD) Acute asthma exacerbation Cough Dyspnea Hiatal hernia Peripheral eosinophilia Social History Smoking Status: Never smoker Hx Alcohol Use: No Hx Substance Use: No Preferred Language: Turkmen Communication Ability: Effective Telecom Assistant Required: No Beliefs That Will Affect Care: None marital status: Single Current Living Situation: Family Current Living Situation Comment: own home Other Information That Helps Us Care for You: No Feels Safe at Home: Yes Assistive Devices: None Review of Systems Review of Systems: All systems reviewed & are unremarkable except as noted in HPI & below Physical Exam Physical Exam: Constitutional: Patient appears to be of their stated age. Patient is in no apparent distress. Patient is well-developed. Eyes: Pupils are equal round and reactive to light. Conjunctivae are normal. Anicteric sclera. Ears nose, mouth and throat: No obvious deformities. Neck: Trachea is midline. Visual inspection is normal. Respiratory: Prolonged phase of exhalation. Wheezes diffusely. Cardiovascular: Regular rate and rhythm. No murmurs. No edema. Gastrointestinal: Normal bowel sounds, soft, nontender and nondistended. No hepatosplenomegaly noted. Musculoskeletal: Patient is able to move all extremities. Strength is 5 out of 5 in the upper and lower extremities. Skin: No rashes, warm dry and intact. Neurologic: No obvious focal neurological deficits seen. Psychiatric: Alert and oriented x3 with a euthymic affect. Results & Data Results & Data ([facility]) Vital Signs (Past 12 Hours) Vital Signs Temp Pulse Pulse Pulse Resp BP Pulse Ox 12/26/20 12:39 83 18 94 12/26/20 10:34 97.9 F 79 19 129/84 90 12/26/20 09:53 139/97 12/26/20 08:37 97.7 F 80 18 180/85 H 92 12/26/20 07:19 94 H 18 96 12/26/20 07:16 67 12/26/20 03:27 98.2 F 71 16 140/75 90 Vital signs, labs and imaging personally reviewed PG Care Time/CCT Total # of Minutes Spent Total Time Spent with Patient: Total time spent is greater than 50% in coordination of care (as documented) at patient's floor/unit and/or counseling patient: Coding Level of Care Code 75950 Inpt Consult Level 5 Diagnoses Acute asthma exacerbation J45.901 Dyspnea R06.00 Cough R05.9 Peripheral eosinophilia D72.19 Hiatal hernia K44.9
[2020-12-26] MEDS: UMECLIDINIUM BROMIDE 62.5MCG/BLISTER 7 PUFFS/INHALER INH SCH (13:31)
--- NOTE | 2020-12-26 14:43 | Hospitalist Progress Note ---
Date of Service December 26, 2020 Assessment & Plan (1) COPD exacerbation: Plan: ASSESSMENT AND PLAN: This is a 50-year-old female who presents with shortness of breath. 1. Possible COPD exacerbation - CXR: No acute chest disease. - continue Solumedrol, Nebs, Doxycycline PO Pulm consulted - added breo ellipta, incruse ellipta, singulair transition to prednisone tomorrow - leather case finisher consulted for assistance re: inhaler costs 2. Irritable bowel syndrome: - n/v improving 3. Migraine Headache - Imitrex PRN 3. Obesity: Needs counseling. 4. Deep venous thrombosis prophylaxis: Lovenox. Disposition pending anticipate d/c home when medically stable Admission and Anticipated Discharge Date Admission Date: December 24, 2020 Subjective ff up for COPD exacerbation, etc seen resting in bed, comfortable states breathing and cough is about the same as yesterday denies chest pain, fever/chills no other symptoms Review of Systems Review of Systems: all noted and negative except for above Physical Exam Physical Exam: General- oriented x 3, not in distress, speaks in sentences with no effort or accessory muscle use Eyes- anicteric Neck- no JVD Lungs-(+) scattered rales b/l Heart- normal rate, regular rhythm; no murmurs Abdomen- normal bowel sounds, nondistended, soft, nontender Extremities- no pretibial edema, no calf tenderness Neuro- alert, oriented x 3; no gross focal neurologic deficits Skin- warm & dry Results & Data Results & Data ([facility]) Vital Signs (Past 12 Hours) Vital Signs Temp Pulse Pulse Pulse Resp BP Pulse Ox 12/26/20 12:39 83 18 94 12/26/20 10:34 36.6 C 79 19 129/84 90 12/26/20 09:53 139/97 12/26/20 08:37 36.5 C 80 18 180/85 H 92 12/26/20 07:19 94 H 18 96 12/26/20 07:16 67 12/26/20 03:27 36.8 C 71 16 140/75 90 all noted and reviewed including below
[2020-12-26] MEDS: guaiFENesin 600 MG TABCR PO SCH (19:57)
[2020-12-26] MEDS ORDERED: MONTELUKAST SODIUM 10 MG TABLET PO SCH (21:00)
[2020-12-26] MEDS ORDERED: diphenhydrAMINE Capsule 25 MG CAP PO ONE (22:17)
[2020-12-27] MEDS: LEVALBUTEROL 1.25MG/0.5ML NEB INH SCH ×3 (00:03→12:49)
[2020-12-27] MEDS: IPRATROPIUM BROMIDE NEB SOLN 0.02% 2.5 ML VIAL INH SCH ×3 (00:05→12:49)
[2020-12-27] MEDS: ENOXAPARIN INJ 40 MG/0.4 ML SYR SQ SCH (05:56)
[2020-12-27] MEDS: methylPREDNISolone 40 MG in SYRINGE 0 ML IV SCH (07:45)
[2020-12-27] MEDS: UMECLIDINIUM BROMIDE 62.5MCG/BLISTER 7 PUFFS/INHALER INH SCH (07:45)
[2020-12-27] MEDS: PANTOprazole 40 MG TAB PO SCH (07:46)
[2020-12-27] MEDS: DOXYCYCLINE HYCLATE 100 MG CAP PO SCH (07:46)
[2020-12-27] MEDS: guaiFENesin 600 MG TABCR PO SCH (07:46)
[2020-12-27] MEDS ORDERED: FLUTICASONE/VILANTEROL 200/25MCG 14 PUFFS/INHALER INH SCH (09:00)
--- NOTE | 2020-12-27 10:00 | Hospitalist Progress Note ---
Date of Service December 27, 2020 Assessment & Plan (1) COPD exacerbation: Plan: ASSESSMENT AND PLAN: This is a 50-year-old female who presents with shortness of breath. 1. Possible COPD exacerbation - CXR: No acute chest disease. - Patient placed on Solumedrol, Nebs, Doxycycline PO Pulm consulted - Started on breo ellipta, incruse ellipta, singulair - Wheezing much improved - Discharge plan: Prednisone taper starting 40 mg daily x3 days, 30 mg p.o. daily x3 days, etc. until off prednisone 5 mg p.o. daily Breo Ellipta, if with financial limitation, can substitute with Symbicort Incruse Ellipta, every financial limitation, consulted with Spiriva Singulair daily As needed nebs Mucinex, Tessalon Briannaes Follow-up with PCP in 1 week Follow-up with thermal surfacing machine operator in 2 weeks clubhouse manager and [facility] nurse coordinator assisted with patient's prescriptions 2. Irritable bowel syndrome: - n/v Resolved 3. Migraine Headache - Imitrex PRN 3. Obesity: Counseling 4. Deep venous thrombosis prophylaxis: Lovenox. Disposition Discharge to home Follow-up as per above plan of care discussed with patient in detail and at length all questions answered she is understanding, agreeable, comfortable with the plan of care Admission and Anticipated Discharge Date Admission Date: December 24, 2020 Subjective ff up for COPD exacerbation, etc seen resting in bed, comfortable Sitting up in bed, in good spirits States she feels much better overall Shortness of breath is greatly improved, has occasional cough, nonproductive No chest pain, palpitations, dizziness No fevers or chills No abdominal pain, nausea vomiting No other symptoms States she is readyAnd would like to be discharged today Review of Systems Review of Systems: all noted and negative except for above Physical Exam Physical Exam: General- oriented x 3, not in distress, speaks in sentences with no effort or accessory muscle use Eyes- anicteric Neck- no JVD Lungs- Mild wheezing at the bases bilaterally, no crackles Heart- normal rate, regular rhythm; no murmurs Abdomen- normal bowel sounds, nondistended, soft, nontender Extremities- no pretibial edema, no calf tenderness Neuro- alert, oriented x 3; no gross focal neurologic deficits Skin- warm & dry Results & Data Results & Data ([facility]) Vital Signs (Past 12 Hours) Vital Signs Temp Pulse Pulse Pulse Resp BP Pulse Ox 12/27/20 07:52 36.7 C 71 20 140/83 96 12/27/20 07:13 75 18 97 12/27/20 03:07 36.7 C 65 18 144/94 H 90 12/27/20 00:17 72 137/86 12/27/20 00:05 71 16 96 12/26/20 23:28 36.8 C 60 18 157/99 H 93 12/26/20 23:25 72 all noted and reviewed including below
--- NOTE | 2020-12-27 11:55 | Pulmonology Progress Note ---
Date of Service December 27, 2020 Assessment & Plan (1) Acute asthma exacerbation: (2) Dyspnea: (3) Cough: (4) Peripheral eosinophilia: Plan: 50-year-old female with a history of GERD, hiatal hernia, obesity and irritable bowels presenting to the hospital due to shortness of breath. Patient was seen by Dr. Haynes 12/26/2020. I was asked to see the patient to help with inhaler regimen prior to discharge --Acute asthma-COPD overlap syndrome exacerbation Continue LABA/ICS LAMA inhaler Continue with tapering steroids Continue with Singulair Elevated eosinophil count, outpatient IgE as well as RAST panel could be thought of. Plan: Patient will need high-dose ICS/LABA inhaler along with LAMA inhaler Options for LABA/ICS DuoNeb would be Symbicort/Dulera/Advair/Breo. Options for LAMA inhaler would be Incruse/Spiriva Combination of all 3 and 1 inhaler like Trelegy could also be tried Patient is in a tricky situation as she does not have any insurance and maintains it in her will be expensive for the patient The next best thing for the patient will be to try for pharmacy assistance. 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 Patient will benefit from PFTs and pulmonary follow-up Patient has been on chronic 5 mg of prednisone as an outpatient. Recommend not to prolong this Case was discussed with Dr. De La Rosa Please note the above document was generated using voice recognition software. It may contain grammatical, syntax or spelling errors.Any formal questions or concerns about the content, text or information contained within the body of this dictation should be directly addressed to the provider for clarification. Admission and Anticipated Discharge Date Admission Date: December 24, 2020 Subjective Patient seen and examined at bedside. No acute distress, no adverse events overnight. Patient says she is feeling better compared to when she came to the hospital Denies any chest pain, pain. No headache, no nausea, no vomiting. Review of Systems Review of Systems: All systems reviewed & are unremarkable except as noted in Subjective Physical Exam Physical Exam: Constitutional: No acute distress HEENT: EOMI, PERRLA Respiratory system: Decreased air entry bilaterally, no rhonchi, no crackles, positive expiratory wheeze bilaterally CVS: S1-S2 positive, no murmurs or gallops Abdomen: Soft, nontender, nondistended, positive bowel sounds x4, obese Extremities: +2 pulses bilaterally radialis/ dorsalis pedis, no cyanosis, no edema Neuro: Awake alert oriented x3 Psych: Normal mood and affect G/U: No Johnson Skin: no rashes, warm and dry Lymphatic: no cervical or axillary lymphadenopathy Results & Data Results & Data ([facility]) Vital Signs (Past 12 Hours) Vital Signs Temp Pulse Pulse Resp BP Pulse Ox 12/27/20 10:46 36.5 C 77 20 146/93 H 95 12/27/20 07:52 36.7 C 71 20 140/83 96 12/27/20 07:13 75 18 97 12/27/20 03:07 36.7 C 65 18 144/94 H 90 12/27/20 00:17 72 137/86 12/27/20 00:05 71 16 96 12/25/20 05:25 12/25/20 05:25 PG Care Time/CCT Total # of Minutes Spent Total Time Spent with Patient: Total time spent is greater than 50% in coordination of care (as documented) at patient's floor/unit and/or counseling patient: Coding Level of Care Code 07069 Subseq Hosp Care Lvl 2 Diagnoses Acute asthma exacerbation J45.901 Dyspnea R06.00 Cough R05.9 Peripheral eosinophilia D72.19
--- NOTE | 2020-12-27 17:10 | Discharge Summary ---
Date of Service December 27, 2020 Admission HPI Per Admitting Provider HISTORY OF PRESENT ILLNESS: A 50-year-old female with past medical history significant for irritable bowel syndrome, GERD, obesity, degenerative disk disease, who presents with shortness of breath and cough. The patient says in February she was having sob symptoms. She was treated with Z-SALOMON and prednisone in the past and last couple of weeks ago, she was placed on prednisone 5 mg daily, but again her symptoms got worse in the last few days and today morning, she was feeling very short of breath, went to PCP's office, and they sent her here. She was initially tachypneic and tachycardic, but after steroids and breathing treatment, she is feeling better now. Denies any fevers. Earlier, she was feeling chest tightness like someone sitting on the chest, but it is better now. The chest pain was more with taking deep breath and cough. Denies any nausea, vomiting. No abdominal pain. Normal bowel and bladder movements. No blood in the stools or black stools. No hematuria. Sometimes she has orthopnea. She is ambulating okay. She has headache from shortness of breath. No blurred visions, no earache, no runny nose, no sore throat. Appetite is not that great. Admission Exam (Per Admitting) Constitutional PHYSICAL EXAMINATION: GENERAL: The patient is obese, not in acute distress. VITAL SIGNS: Temperature 36.2, pulse 103, respiratory rate 30, blood pressure 144/80, oxygen 95% on room air. HEENT: Pupils equal, round and reactive to light. Oral mucosa moist. NECK: No JVD, no neck masses. CARDIOVASCULAR: S1 and S2 heard, tachycardia. No murmurs. RESPIRATORY SYSTEM: Normal AP diameter. No accessory muscle use, but bilateral rhonchi and wheezing heard. ABDOMEN: Soft, bowel sounds present, nontender, no distention. CENTRAL NERVOUS SYSTEM: Cranial nerves II-XII grossly intact, nonfocal. EXTREMITIES: Trace pedal edema, no erythema seen. Discharge Data Consultations 12/24/20 20:22 ED Decision to Admit Stat 12/25/20 08:00 Consult Pulmonology Routine Procedures Performed XR chest 1V portable CLINICAL HISTORY: Atypical chest pain TECHNIQUE: Single frontal radiograph of the chest was obtained. Comparison: Comparison is made to chest one view 06/09/2020 FINDINGS: No lines and tubes are seen. The cardiomediastinal silhouette is normal. The lungs are clear. No evidence of pleural effusion or pneumothorax. IMPRESSION: No acute chest disease. ACT 112: Negative or not required by law. Hospital Course (1) COPD exacerbation: ASSESSMENT AND PLAN: This is a 50-year-old female who presents with shortness of breath. 1. Possible COPD exacerbation - CXR: No acute chest disease. - Patient placed on Solumedrol, Nebs, Doxycycline PO Pulm consulted - Started on breo ellipta, incruse ellipta, singulair - Wheezing much improved - Discharge plan: Prednisone taper starting 40 mg daily x3 days, 30 mg p.o. daily x3 days, etc. until off prednisone 5 mg p.o. daily Breo Ellipta, if with financial limitation, can substitute with Symbicort Incruse Ellipta, every financial limitation, consulted with Spiriva Singulair daily As needed nebs Mucinex, Tessalon Perles Follow-up with PCP in 1 week Follow-up with shuttle truck driver in 2 weeks rainbow trout farm manager and [facility] nurse coordinator assisted with patient's prescriptions 2. Irritable bowel syndrome: - n/v Resolved 3. Migraine Headache - Imitrex PRN 3. Obesity: Counseling 4. Deep venous thrombosis prophylaxis: Lovenox. Disposition Discharge to home Follow-up as per above plan of care discussed with patient in detail and at length all questions answered she is understanding, agreeable, comfortable with the plan of care
== END 2020-12-27 13:28 | disposition home or self-care (01) | DRG 192 ==
LOC: ED 13:19 → 2S 21:22 → INTOOBSV 21:22 → 2S 23:24

== ENCOUNTER 2025-02-22 12:12 | Observation (INO) ==
[2025-02-22 12:44] LABS: Hematocrit (blood only) 46.5 % (37.0-47.0); Hemoglobin 15.6 g/dL (12.0-16.0); Mean Corpuscular Hemoglobin 27.8 pg (25.0-34.0); Mean Corpuscular Volume 82.9 fL (80.0-100.0); Platelet Count 312 K/uL (130-400); RDW Standard Deviation 38.3 fL (36.4-46.3); Red Blood Count 5.61 M/uL (4.20-5.40); White Blood Count 13.71 K/ul (4.8-10.8)
[2025-02-22 13:00] LABS: Anion Gap 14 (3-11); Blood Urea Nitrogen 9 mg/dl (6-23); Calcium 10.0 mg/dl (8.6-10.3); Carbon Dioxide 24 mmol/L (21-32); Chloride 100 mmol/L (98-107); Glucose 118 mg/dl (70-99(Fasting)); Potassium 3.4 mmol/L (3.5-5.1); Sodium 138 mmol/L (136-145)
[2025-02-22] MEDS: ONDANSETRON INJ 2 MG/ML 2 ML VIAL IV STA ×2 (13:03→17:45)
[2025-02-22] MEDS: PANTOprazole 40 MG/10 ML SYR IV ONE (13:04)
[2025-02-22] MEDS: SODIUM CHLORIDE 0.9% 1,000 ML IV ONE ×2 (13:04→14:55)
[2025-02-22] MEDS: ACETAMINOPHEN 1,000 MG/100 ML VIAL IV STA ×2 (13:04→17:50)
[2025-02-22] MEDS: FAMOTIDINE 20MG IV PUSH 20 MG/5 ML SYR IV STA (13:04)
[2025-02-22] MEDS: OPTIRAY 320 125ml IV ONE (13:28)
--- NOTE | 2025-02-22 14:10 | CT Scan Report ---
EXAM: CT Angiography Abdomen and Pelvis With Intravenous Contrast INDICATION: Lower abdominal pain and rectal bleeding. TECHNIQUE: Axial computed tomographic angiography images of the abdomen and pelvis with intravenous contrast. Sagittal and coronal reformatted images were created and reviewed. This CT exam was performed using one or more of the following dose reduction techniques: automated exposure control, adjustment of the mA and/or kV according to patient size, and/or use of iterative reconstruction technique. MIP reconstructed images were created and reviewed. CONTRAST: 120 ml of Optiray 320 was administered intravenously. COMPARISON: No relevant prior studies available. FINDINGS: VASCULATURE: Aorta: No acute change noted. No thoracic aortic aneurysm or dissection. Celiac trunk and mesenteric arteries: No acute change noted. No occlusion or significant stenosis. Renal arteries: No acute change noted. No occlusion or significant stenosis. Iliac arteries: No acute change noted. No occlusion or significant stenosis. Lung bases: No abnormality noted. No mass. No consolidation. ABDOMEN: Liver: No abnormality noted. No mass. Gallbladder and bile ducts: No abnormality noted. No calcified stones. No ductal dilation. Pancreas: No abnormality noted. No ductal dilation. No mass. Spleen: No abnormality noted. No splenomegaly. Adrenals: No abnormality noted. No mass. Kidneys and ureters: No abnormality noted. No hydronephrosis. No solid mass. Stomach and bowel: There is moderate thickening of the entire descending colon with mild to moderate surrounding inflammation. Moderate stool right colon. No obstruction. No acute gastrointestinal hemorrhage noted during his (arterial phase imaging performed). PELVIS: Appendix: Well seen and appears normal. Bladder: No abnormality noted. No mass. Reproductive: No acute abnormality noted. ABDOMEN and PELVIS: Intraperitoneal space: No abnormality noted. No significant fluid collection. No free air. Bones/joints: No acute or atypical chronic changes. Soft tissues: No abnormality noted. Lymph nodes: No abnormality noted. No enlarged lymph nodes. IMPRESSION: Moderate diffuse left colitis without complication. ACT 112: N/A Electronically signed by Mary Pabon 02-22-2025 2:10 PM
[2025-02-22 14:27] LABS: Alanine Aminotransferase 14 U/L (7-52); Albumin Level 4.6 gm/dl (3.4-5.0); Alkaline Phosphatase 76 U/L (34-104); Bilirubin,Total 0.5 mg/dl (0.2-1.0); Lipase 163 U/L (11-82); Total Protein 8.1 gm/dl (6.0-8.3)
[2025-02-22 14:43] LABS: INR 1.0 (0.9-1.1); Prothrombin Time 10.6 Seconds (9.0-12.0)
--- NOTE | 2025-02-22 15:03 | Emergency Department Note ---
Impression & Plan GI (gastrointestinal bleed), Colitis, Nausea and vomiting, Abdominal pain ED Provider Note ED Provider Note NAME: ISAIAS OLEARY AGE:54 SEX: Female : 1970 ARRIVES VIA: Private vehicle INFORMANT: Patient ED PROVIDER(s): Tatiana Marrero DO CHIEF COMPLAINT: Nausea, vomiting, abdominal pain, blood with bowel movement HPI: This is a 54-year-old female who presents to the emergency department due to concern for nausea, vomiting, abdominal pain, diarrhea, and GI bleed. Patient states she first began feeling unwell yesterday. She states symptoms persisted and she began to notice bright red blood when she went to have a bowel movement. She states she had further bloody even just with sitting on the toilet to urinate into this morning and came in for further evaluation. She denies fevers but does admit to chills. She also states she was lightheaded given she has not been able to keep anything down in the last 2 days. She states she was trying to sip water but she would even vomit that up. No blood noted in the emesis. No prior history of GI bleed. She does have a history of IBS, no IBD. She has previously had a colonoscopy which was reported to her as reassuring. Patient recently started Zepbound 2 weeks ago, no change in dose. Last dose was . PAST MEDICAL HISTORY:See Below PAST SURGICAL HISTORY:See Below FAMILY HISTORY:See Below SOCIAL HISTORY:See Below HOME MEDICATIONS:See Below ALLERGIES:See Below VITALS:See Below PHYSICAL EXAMINATION: GENERAL: alert, uncomfortable appearing, well nourished, mild distress, non- toxic, holding emesis bag EYE EXAM: normal conjunctiva, PERRL and EOM's grossly intact OROPHARYNX: no exudate, no erythema, lips, buccal mucosa, and tongue normal and mucous membranes are dry NECK: supple, no nuchal rigidity, no adenopathy, non-tender LUNGS: Clear to auscultation. Normal chest wall mechanics, no w/r/r HEART: no murmurs, S1 normal and S2 normal ABDOMEN: abdomen soft, non-tender, normo-active bowel sounds, no masses, no rebound or guarding. BACK: Back is symmetrical on inspection and there is no deformit SKIN: no rashes, petechiae, orbruising UPPER EXTREMITIES: upper extremities are grossly normal. FROM, nml pulses b/l. LOWER EXTREMITIES: No pitting edema. FROM, nml pulses b/l. NEURO EXAM: Normal sensorium, cranial nerves II-XII grossly intact, normal speech, no facial droop,nogross weakness of arms, no gross weakness of legs. Gross sensation intact. No ataxia. Vital Signs: reviewed and remarkable Differential Diagnosis: diverticulosis, AVM, coagulopathy, colitis, inflammatory bowel disease, malignancy, Olga-Patel tear, esophagitis, peptic ulcer disease, fissure, hemorrhoids, as well as others were entertained. MEDICAL DECISION MAKING: This is a 54-year-old female who presents to the emergency department due to concern for nausea, vomiting, abdominal pain, blood with a bowel movement. Patient was afebrile and hemodynamically stable on arrival. Labs drawn and sent, IV established, patient was monitored on telemetry. She was started on IV fluids and given IV Tylenol, IV Zofran, and IV Pepcid initially for her symptoms. She was sent for CT of the abdomen pelvis. Patient did have passage of blood here which was witnessed by myself. CT revealed colitis along the left descending colon. No recent travel, no sick contacts, or concern for foodborne illness. Patient concern for possible side effect of recent initiation of Zepbound. Mild elevation of her lipase although no evidence of pancreatitis noted on CT by radiology. Unclear etiology of colitis. After 2 L of IV fluids and additional medications, patient still had worsening pain and recurrent nausea/vomiting with p.o. trial. Overall she did appear improved however given concern for persistent symptoms and ability to stay hydrated if she returned home, we discussed further inpatient management and she was in agreement. Case discussed with the hospitalist team for further evaluation and management. Consultation(s): 1804: Discussed with Loretta Jack hospitalist team, for additional evaluation and mgmt. ER Treatment Provided: See below Diagnostics Interpreted By Me: -Cardiac Monitoring: An order was placed for continuous cardiac monitoring. The monitor shows a rate of 77 with normal sinus rhythm. -Laboratory studies: As stated above and show below. -Imaging studies: ct a/p no active bleed, no perf, no sbo Triage Nursing Note Reviewed Prior/Outside Records Reviewed Past Med/Surg History Problem List (Updated 02/22/25 @ 15:03 by Tatiana Marrero DO) Abdominal pain (Acute) Nausea and vomiting (Acute) Colitis (Acute) GI (gastrointestinal bleed) (Acute) Cough per pt resolved Dyspnea per pt resolved Acute asthma exacerbation per pt resolved Chest tightness (Acute) Acute dyspnea (Acute) COPD exacerbation (Acute) Insomnia Hiatal hernia Peripheral eosinophilia Medical History Acid reflux disease Temporomandibular joint disorder per pt is slight, no device Anxiety and depression Migraine Chronic obstructive pulmonary disease per pt is well controlled with inhaler daily/prn Insomnia Hiatal hernia Peripheral eosinophilia Surgical History History of cataract surgery rt Nausea and vomiting after administration of anesthetic agent History of endometrial ablation History of open reduction and internal fixation (ORIF) procedure clavicle fx repair--hardware in place History of arthroscopy of right knee History of colonoscopy History of partial hysterectomy History of left oophorectomy History of cholecystectomy History of wisdom tooth extraction History of tooth extraction History of sinus surgery History of tonsillectomy and adenoidectomy History of detached retina repair right eye Family History Mother Family history of reaction to anesthesia nausea/vomiting Social History Smoking Status: Never smoker Second Hand Exposure: No; Do You Dip or Chew Tobacco: No; Hx Alcohol Use: No Hx Substance Use: No Preferred Language: Tamazight Communication Ability: Effective Hvac Service Technician Required: No Beliefs That Will Affect Care: None marital status: Single Current Living Situation: Family Current Living Situation Comment: daughter Feels Safe at Home: Yes Safety Concerns: Feels Safe At This Time Assistive Devices: None Allergies Allergies Allergy/AdvReac Type Severity Reaction Status Date / Time codeine Allergy Intermediate Hives, Verified 02/22/25 18:09 ITCHY AND HEADACHE metronidazole AdvReac Intermediate NAUSEA AND Verified 02/22/25 18:09 VOMITING Home Meds Home Medications Medication Instructions Recorded Confirmed fluticasone fur. 100 mcg-umeclid 1 inh inhalation QAM 12/05/22 02/22/25 62.5 mcg-vilant 25 mcg inhalat.powder (Trelegy Ellipta) trazodone 100 mg tablet 100 mg PO HS 12/05/22 02/22/25 albuterol sulfate 2.5 mg/3 mL 2.5 mg inhalation DIRECTED PRN 02/22/25 02/22/25 (0.083 %) solution for nebulization Shortness Of Breath Or Wheezing azelastine 205.5 mcg (0.15 %) 1 spray intranasal BID 02/22/25 02/22/25 nasal spray benzonatate 100 mg capsule 100 mg PO TID PRN Cough 02/22/25 02/22/25 bupropion HCl 150 mg 24 hr tablet, 150 mg PO QAM 02/22/25 02/22/25 extended release cyclobenzaprine 10 mg tablet 10 mg PO TID PRN MUSCLE SPASMS 02/22/25 02/22/25 escitalopram oxalate 10 mg tablet 10 mg PO DAILY 02/22/25 02/22/25 fluticasone propionate 50 2 spray intranasal DAILY 02/22/25 02/22/25 mcg/actuation nasal spray,suspension naproxen 500 mg tablet 500 mg PO BID PRN Pain 02/22/25 02/22/25 tirzepatide (weight loss) 7.5 3.75 mg subcut WK 02/22/25 02/22/25 mg/0.5 mL subcutaneous pen injector (Zepbound) Previous Rx's Medication Instructions Recorded albuterol sulfate 90 mcg/actuation 2 inh inhalation Q4H PRN shortness 06/09/20 aerosol inhaler of breath or wheezing #8.5 grams Results & Data (ED) Vital Signs Vital Signs - 24 hr 02/22/25 12:18 02/22/25 12:34 02/22/25 17:50 Temperature 36.9 C Temperature Source Temporal Artery Scan Pulse Rate 89 Pulse Rate [Apical] 83 Respiratory Rate 19 24 Blood Pressure [Left Arm] 147/94 H 145/87 H Blood Pressure Mean [Left Arm] 111 106 Blood Pressure Position [Left Arm] Sitting Semi-fowlers Pulse Oximetry 100 100 Oxygen Delivery Method Room Air Room Air Sepsis Recent Fever Within 48 Hours No Sepsis New/Unexplained Change in Mental Status N/A Sepsis Action Taken by Nursing No Action Required 02/22/25 18:18 Temperature Temperature Source Pulse Rate 68 Pulse Rate [Apical] Respiratory Rate Blood Pressure [Left Arm] Blood Pressure Mean [Left Arm] Blood Pressure Position [Left Arm] Pulse Oximetry Oxygen Delivery Method Sepsis Recent Fever Within 48 Hours Sepsis New/Unexplained Change in Mental Status Sepsis Action Taken by Nursing Laboratory Data 02/22/25 12:02/22/25 12: Lab Results 02/22/25 02/22/25 02/22/25 Range/Units 12: 12: 18:11 WBC 13.71 H (4.8-10.8) K/ul RBC 5.61 H (4.20-5.40) M/uL Hgb 15.6 (12.0-16.0) g/dL Hct 46.5 (37.0-47.0) % MCV 82.9 (80.0-100.0) fL MCH 27.8 (25.0-34.0) pg MCHC 33.5 (32.0-36.0) g/dL RDW Std Deviation 38.3 (36.4-46.3) fL RDW Coeff of Mark 12.7 (11.5-14.5) % Plt Count 312 (130-400) K/uL MPV 10.3 (9.4-12.4) fL PT 10.6 (9.0-12.0) Seconds INR 1.0 (0.9-1.1) Sodium 138 (136-145) mmol/L Potassium 3.4 L (3.5-5.1) mmol/L Chloride 100 (98-107) mmol/L Carbon Dioxide 24 (21-32) mmol/L Anion Gap 14 H (3-11) BUN 9 (6-23) mg/dl Creatinine 0.84 (0.6-1.2) mg/dl Est Cr Clr Drug Dosing Not Reportable eGFR 82.53 BUN/Creatinine Ratio 10.7 (10-20) Glucose 118 H (70-99(Fasting)) mg/dl Lactate 1.3 (0.4-2.0) mmol/L Calcium 10.0 (8.6-10.3) mg/dl Magnesium 1.9 (1.7-2.4) mg/dl Total Bilirubin 0.5 (0.2-1.0) mg/dl Direct Bilirubin 0.1 (0-0.2) mg/dl AST 16 (13-39) U/L ALT 14 (7-52) U/L Alkaline Phosphatase 76 (34-104) U/L C-Reactive Protein 1.38 H (0-0.5) mg/dl Total Protein 8.1 (6.0-8.3) gm/dl Albumin 4.6 (3.4-5.0) gm/dl Lipase 163 H (11-82) U/L Procalcitonin 0.05 (0-0.5) ng/ml Blood Type B Positive Antibody Screen NEGATIVE Administered Medications Promethazine HCl (Phenergan) 12.5 mg in 50.5 mls @ 202 mls/hr IV Q6H PRN PRN Reason: Nausea And Vomiting Stop: 03/24/25 18:44 Last Infusion: 02/22/25 20:00 Dose: Infused Documented By: Admin: 02/22/25 19:45 Dose: 202 mls/hr Documented By: abl Potassium Chloride (K Nabil / Wtr) 10 meq in 100 mls @ 100 mls/hr IV Q1H AZUCENA Stop: 02/22/25 21:59 Last Admin: 02/22/25 21:11 Dose: 100 mls/hr Documented By: Infusion: 02/22/25 20:22 Dose: Infused Documented By: Admin: 02/22/25 19:22 Dose: 100 mls/hr Documented By: NOELLE Discontinued Medications Dicyclomine HCl (Dicyclomine Hcl 10 Mg/Ml 2 Ml Amp/Vial) 20 mg IM NOW ONE Stop: 02/22/25 17:32 Last Admin: 02/22/25 17:41 Dose: 20 mg Documented By: CEF Sodium Chloride (Nss) 1,000 mls @ 999 mls/hr IV .Q1H1M ONE Stop: 02/22/25 13:56 Last Infusion: 02/22/25 14:19 Dose: Infused Documented By: Admin: 02/22/25 13:04 Dose: 999 mls/hr Documented By: MES Famotidine (Pepcid 20mg Iv Push) 20 mg in 5 mls @ 2.5 mls/min IV NOW STA Stop: 02/22/25 12:57 Last Admin: 02/22/25 13:04 Dose: 2.5 mls/min Documented By: MES Pantoprazole Sodium (Protonix) 40 mg in 10 mls @ 5 mls/min IV NOW ONE Stop: 02/22/25 12:57 Last Admin: 02/22/25 13:04 Dose: 5 mls/min Documented By: MES Acetaminophen (Ofirmev) 1,000 mg in 100 mls @ 400 mls/hr IV NOW STA Stop: 02/22/25 13:10 Last Infusion: 02/22/25 13:19 Dose: Infused Documented By: Admin: 02/22/25 13:04 Dose: 400 mls/hr Documented By: MES Sodium Chloride (Nss) 1,000 mls @ 999 mls/hr IV .Q1H1M ONE Stop: 02/22/25 15:45 Last Infusion: 02/22/25 16:01 Dose: Infused Documented By: Admin: 02/22/25 14:55 Dose: 999 mls/hr Documented By: GRACE Acetaminophen (Ofirmev) 1,000 mg in 100 mls @ 400 mls/hr IV NOW STA Stop: 02/22/25 17:45 Last Admin: 02/22/25 17:50 Dose: Not Given Documented By: CEF Sodium Chloride (Nss) 1,000 mls @ 125 mls/hr IV .Q8H AZUCENA Stop: 02/25/25 17:44 Last Infusion: 02/22/25 19:17 Dose: Infused Documented By: Admin: 02/22/25 17:48 Dose: 125 mls/hr Documented By: CEF Ioversol (Optiray 320 125ml) 120 ml IV ONCE ONE Stop: 02/22/25 13:29 Last Admin: 02/22/25 13:28 Dose: 120 ml Documented By: JAR Morphine Sulfate (Morphine Sulfate 4 Mg/Ml 1 Ml Carp\Vial) 4 mg IV NOW STA Stop: 02/22/25 17:36 Last Admin: 02/22/25 17:46 Dose: 4 mg Documented By: CEF Ondansetron HCl (Ondansetron Inj 2 Mg/Ml 2 Ml Vial) 4 mg IV NOW STA Stop: 02/22/25 12:57 Last Admin: 02/22/25 13:03 Dose: 4 mg Documented By: MES Ondansetron HCl (Ondansetron Inj 2 Mg/Ml 2 Ml Vial) 4 mg IV NOW STA Stop: 02/22/25 17:32 Last Admin: 02/22/25 17:45 Dose: 4 mg Documented By: CEF Imaging Data Radiologist's Impression: Abdomen/Pelvis CTA 02/22/25 12:56 EXAM: CT Angiography Abdomen and Pelvis With Intravenous Contrast INDICATION: Lower abdominal pain and rectal bleeding. TECHNIQUE: Axial computed tomographic angiography images of the abdomen and pelvis with intravenous contrast. Sagittal and coronal reformatted images were created and reviewed. This CT exam was performed using one or more of the following dose reduction techniques: automated exposure control, adjustment of the mA and/or kV according to patient size, and/or use of iterative reconstruction technique. MIP reconstructed images were created and reviewed. CONTRAST: 120 ml of Optiray 320 was administered intravenously. COMPARISON: No relevant prior studies available. FINDINGS: VASCULATURE: Aorta: No acute change noted. No thoracic aortic aneurysm or dissection. Celiac trunk and mesenteric arteries: No acute change noted. No occlusion or significant stenosis. Renal arteries: No acute change noted. No occlusion or significant stenosis. Iliac arteries: No acute change noted. No occlusion or significant stenosis. Lung bases: No abnormality noted. No mass. No consolidation. ABDOMEN: Liver: No abnormality noted. No mass. Gallbladder and bile ducts: No abnormality noted. No calcified stones. No ductal dilation. Pancreas: No abnormality noted. No ductal dilation. No mass. Spleen: No abnormality noted. No splenomegaly. Adrenals: No abnormality noted. No mass. Kidneys and ureters: No abnormality noted. No hydronephrosis. No solid mass. Stomach and bowel: There is moderate thickening of the entire descending colon with mild to moderate surrounding inflammation. Moderate stool right colon. No obstruction. No acute gastrointestinal hemorrhage noted during his (arterial phase imaging performed). PELVIS: Appendix: Well seen and appears normal. Bladder: No abnormality noted. No mass. Reproductive: No acute abnormality noted. ABDOMEN and PELVIS: Intraperitoneal space: No abnormality noted. No significant fluid collection. No free air. Bones/joints: No acute or atypical chronic changes. Soft tissues: No abnormality noted. Lymph nodes: No abnormality noted. No enlarged lymph nodes. IMPRESSION: Moderate diffuse left colitis without complication. ACT 112: N/A Electronically signed by Mary Pabon 02-22-2025 2:10 PM Discharge Plan Visit Data Chief Complaint: Bleeding Stated Complaint: BLEEDING INSIDE ED Provider: Tatiana Marrero Discharge Problem: GI (gastrointestinal bleed), Colitis, Nausea and vomiting, Abdominal pain Patient Disposition: Admitted As Inpatient Condition: Fair Discharge Instructions Interventions: ED Discharge Assessment Last Done: 02/22/25 19:38
[2025-02-22] MEDS: DICYCLOMINE HCL 10 MG/ML 2 ML AMP/VIAL IM ONE (17:41)
[2025-02-22] MEDS: MoRPHine SULFATE 4 MG/ML 1 ML CARP\\VIAL IV STA (17:46)
[2025-02-22] MEDS: SODIUM CHLORIDE 0.9% 1,000 ML IV SCH (17:48)
--- NOTE | 2025-02-22 18:08 | History & Physical Report ---
<Statement entered by Jaime Ledbetter, DO - 02/22/25 19:45> I have seen and examined the patient and have discussed the case with the advance practice provider. I have reviewed the advanced practitioner's documentation, and I agree with, and take responsibility for that plan of care. Reviewed history with patient. No other sick contacts, did not eat any undercooked food or tainted food, no recent travel, no untreated water. Investigated literature, no documented hemorrhagic colitis with zepbound at least reported. Reviewed plan of care as outlined below I spent a total of 18 minutes coordinating, documenting, and providing care for this patient excluding time spent by another provider/QHP. Date of Service February 22, 2025 Assessment & Plan (1) Colitis: (2) GI (gastrointestinal bleed): (3) Chronic obstructive pulmonary disease: (4) Acid reflux disease: Plan This is a 54 y/o female with COPD/asthma, IBS, GERD, DJD, RLS, and other history as outlined below who presented to the ED today with N/V/D for three days and rectal bleeding that started yesterday. Work-up in the ED included CTA abd/pel that showed colitis, labs showing leukocytosis with WBCs 13.71, normal H&H at 15.6/46.5, mild hypokalemia with potassium of 3.4, mildly elevated lipase of 163 (pancreas appeared normal on CT). Pt referred for admission due to ongoing rectal bleeding and inability to tolerate po. CRP elevated at 1.38. #Colitis differential includes medication-related due to timing of symptoms with Zepbound dose, infectious (recent antibiotic use), ischemic (poor oral intake with potential for transient hypotension), or inflammatory; may be multi- factorial #Rectal bleeding suspect related to colitis seen on imaging #Dehydration - suspect hemoconcentrated on labs, decreased skin turgor and dry oral mucosa on exam Admit to med telemetry Consult gastroenterology for possible scope Stool studies for infection including C. diff PRN anti-emetics, pain medication, anti-spasmodics Trend H&H due to rectal bleeding Clear liquid diet as tolerated for now IVF hydration for two more liters then reassess Replete electrolytes AM labs CBC, BMP PPI for acid reflux symptoms #Leukocytosis may be reactive vs. infectious Trend labs #Hypokalemia Check magnesium level Replete potassium #COPD/Asthma Recent exacerbation but respiratory status back to baseline Continue outpatient regimen Pt seen and reviewed with collaborating physician, Dr. Ledbetter. Plan of care discussed and as outlined above. Code status: full code DVT prophylaxis: Thuy Luciano PA-C History of Present Illness Chief Complaint: rectal bleeding Primary Care Provider: Jalen Ford MD This is a 54 y/o female with COPD/asthma, IBS, GERD, DJD, RLS, and other history as outlined below who presented to the ED today with N/V/D for three days and rectal bleeding that started yesterday. She reports that she recently started Zepbound and took her second dose on 02/19. Within twelve hours, she developed nausea and vomiting. By the next day 02/20, she developed significant abdominal cramping and diarrhea. Yesterday 02/21, she started with rectal bleedi ng that she describes as bright red, may have clots. Today, she reports rectal bleeding even when she sits down to urinate. Bowel movements have ranged from diarrhea to formed stool. The abdominal pain is described as sharp cramping, mostly in the lower abdomen and around to the right flank area. She continues with nausea, improved but not resolved with meds in the ED. Any oral intake results in upper abdominal burning and regurgitation. She has continued to have intermittent vomiting, did not notice any blood in the emesis until this afternoon in the ED. She has not been able to tolerate oral intake since her symptoms started, and now feels generally weak and lightheaded. She did have some nausea and vomiting after her first dose of Zepbound, but nothing this severe. She denies prior history of PUD, IBD or GI bleed. She does not routinely take NSAIDs. She saw PCP earlier in January for COPD exacerbation which was treated with prednisone and azithromycin. Her respiratory status is back to baseline. No sick contacts with similar symptoms. Colonoscopy 04/19/21 normal examined TI and colon. Repeat in 5 years (first- degree relative with colon polyps) Allergies Allergy/AdvReac Type Severity Reaction Status Date / Time codeine Allergy Intermediate Hives, Verified 02/22/25 18:09 ITCHY AND HEADACHE metronidazole AdvReac Intermediate NAUSEA AND Verified 02/22/25 18:09 VOMITING Home Medications Medication Instructions Recorded Confirmed Type albuterol sulfate 90 mcg/actuation 2 inh inhalation Q4H PRN shortness 06/09/20 02/22/25 Rx aerosol inhaler of breath or wheezing #8.5 grams fluticasone fur. 100 mcg-umeclid 1 inh inhalation QAM 12/05/22 02/22/25 History 62.5 mcg-vilant 25 mcg inhalat.powder (Trelegy Ellipta) trazodone 100 mg tablet 100 mg PO HS 12/05/22 02/22/25 History albuterol sulfate 2.5 mg/3 mL 2.5 mg inhalation DIRECTED PRN 02/22/25 02/22/25 History (0.083 %) solution for nebulization Shortness Of Breath Or Wheezing azelastine 205.5 mcg (0.15 %) 1 spray intranasal BID 02/22/25 02/22/25 History nasal spray benzonatate 100 mg capsule 100 mg PO TID PRN Cough 02/22/25 02/22/25 History bupropion HCl 150 mg 24 hr tablet, 150 mg PO QAM 02/22/25 02/22/25 History extended release cyclobenzaprine 10 mg tablet 10 mg PO TID PRN MUSCLE SPASMS 02/22/25 02/22/25 History escitalopram oxalate 10 mg tablet 10 mg PO DAILY 02/22/25 02/22/25 History fluticasone propionate 50 2 spray intranasal DAILY 02/22/25 02/22/25 History mcg/actuation nasal spray,suspension naproxen 500 mg tablet 500 mg PO BID PRN Pain 02/22/25 02/22/25 History tirzepatide (weight loss) 7.5 3.75 mg subcut WK 02/22/25 02/22/25 History mg/0.5 mL subcutaneous pen injector (Zepbound) Past Med/Surg History Problem List (Updated 02/22/25 @ 15:03 by Tatiana Marrero DO) Abdominal pain (Acute) Nausea and vomiting (Acute) Colitis (Acute) GI (gastrointestinal bleed) (Acute) Cough per pt resolved Dyspnea per pt resolved Acute asthma exacerbation per pt resolved Chest tightness (Acute) Acute dyspnea (Acute) COPD exacerbation (Acute) Insomnia Hiatal hernia Peripheral eosinophilia Medical History Acid reflux disease Temporomandibular joint disorder per pt is slight, no device Anxiety and depression Migraine Chronic obstructive pulmonary disease per pt is well controlled with inhaler daily/prn Insomnia Hiatal hernia Peripheral eosinophilia Surgical History History of cataract surgery rt Nausea and vomiting after administration of anesthetic agent History of endometrial ablation History of open reduction and internal fixation (ORIF) procedure clavicle fx repair--hardware in place History of arthroscopy of right knee History of colonoscopy History of partial hysterectomy History of left oophorectomy History of cholecystectomy History of wisdom tooth extraction History of tooth extraction History of sinus surgery History of tonsillectomy and adenoidectomy History of detached retina repair right eye Family History Mother Family history of reaction to anesthesia nausea/vomiting Social History Smoking Status: Never smoker Second Hand Exposure: No; Do You Dip or Chew Tobacco: No; Hx Alcohol Use: No Preferred Language: Japanese Communication Ability: Effective [employer] Required: No Beliefs That Will Affect Care: None marital status: Single Current Living Situation: Family Current Living Situation Comment: Lives with daughter Feels Safe at Home: Yes Assistive Devices: None Review of Systems Review of Systems: All systems reviewed & are unremarkable except as noted in Subjective Physical Exam Physical Exam: General: awake, alert, appears uncomfortable, frequently shifting positions to try to get comfortable HEENT: no scleral icterus, mildly dry oral mucosa Neck: supple, trachea midline Heart: RRR, no M/G/R Lungs: CTA bilaterally Abdomen: soft, +BS, mild lower abdominal tenderness, no guarding or rebound Skin: warm, dry, no jaundice, +mildly delayed skin turgor Extremities: distal pulses intact and equal, no pedal edema Neurologic: Ox3, no confusion or dysarthria, moving all extremities, no focal deficits Results & Data Results & Data Vital Signs (Past 12 Hours) Vital Signs Temp Pulse Pulse Resp BP Pulse Ox O2 Del Method 02/22/25 17:50 83 24 145/87 H 100 Room Air 02/22/25 12:34 147/94 H 02/22/25 12:18 36.9 C 89 19 100 Room Air Laboratory Results Lab Results 02/22/25 02/22/25 Range/Units 12:28 12:30 WBC 13.71 H (4.8-10.8) K/ul RBC 5.61 H (4.20-5.40) M/uL Hgb 15.6 (12.0-16.0) g/dL Hct 46.5 (37.0-47.0) % MCV 82.9 (80.0-100.0) fL MCH 27.8 (25.0-34.0) pg MCHC 33.5 (32.0-36.0) g/dL RDW Std Deviation 38.3 (36.4-46.3) fL RDW Coeff of Mark 12.7 (11.5-14.5) % Plt Count 312 (130-400) K/uL MPV 10.3 (9.4-12.4) fL PT 10.6 (9.0-12.0) Seconds INR 1.0 (0.9-1.1) Sodium 138 (136-145) mmol/L Potassium 3.4 L (3.5-5.1) mmol/L Chloride 100 (98-107) mmol/L Carbon Dioxide 24 (21-32) mmol/L Anion Gap 14 H (3-11) BUN 9 (6-23) mg/dl Creatinine 0.84 (0.6-1.2) mg/dl Est Cr Clr Drug Dosing Not Reportable eGFR 82.53 BUN/Creatinine Ratio 10.7 (10-20) Glucose 118 H (70-99(Fasting)) mg/dl Calcium 10.0 (8.6-10.3) mg/dl Total Bilirubin 0.5 (0.2-1.0) mg/dl Direct Bilirubin 0.1 (0-0.2) mg/dl AST 16 (13-39) U/L ALT 14 (7-52) U/L Alkaline Phosphatase 76 (34-104) U/L Total Protein 8.1 (6.0-8.3) gm/dl Albumin 4.6 (3.4-5.0) gm/dl Lipase 163 H (11-82) U/L Procalcitonin 0.05 (0-0.5) ng/ml Blood Type B Positive Antibody Screen NEGATIVE Diagnostic Findings Abdomen/Pelvis CTA 02/22/25 12:56 EXAM: CT Angiography Abdomen and Pelvis With Intravenous Contrast INDICATION: Lower abdominal pain and rectal bleeding. TECHNIQUE: Axial computed tomographic angiography images of the abdomen and pelvis with intravenous contrast. Sagittal and coronal reformatted images were created and reviewed. This CT exam was performed using one or more of the following dose reduction techniques: automated exposure control, adjustment of the mA and/or kV according to patient size, and/or use of iterative reconstruction technique. MIP reconstructed images were created and reviewed. CONTRAST: 120 ml of Optiray 320 was administered intravenously. COMPARISON: No relevant prior studies available. FINDINGS: VASCULATURE: Aorta: No acute change noted. No thoracic aortic aneurysm or dissection. Celiac trunk and mesenteric arteries: No acute change noted. No occlusion or significant stenosis. Renal arteries: No acute change noted. No occlusion or significant stenosis. Iliac arteries: No acute change noted. No occlusion or significant stenosis. Lung bases: No abnormality noted. No mass. No consolidation. ABDOMEN: Liver: No abnormality noted. No mass. Gallbladder and bile ducts: No abnormality noted. No calcified stones. No ductal dilation. Pancreas: No abnormality noted. No ductal dilation. No mass. Spleen: No abnormality noted. No splenomegaly. Adrenals: No abnormality noted. No mass. Kidneys and ureters: No abnormality noted. No hydronephrosis. No solid mass. Stomach and bowel: There is moderate thickening of the entire descending colon with mild to moderate surrounding inflammation. Moderate stool right colon. No obstruction. No acute gastrointestinal hemorrhage noted during his (arterial phase imaging performed). PELVIS: Appendix: Well seen and appears normal. Bladder: No abnormality noted. No mass. Reproductive: No acute abnormality noted. ABDOMEN and PELVIS: Intraperitoneal space: No abnormality noted. No significant fluid collection. No free air. Bones/joints: No acute or atypical chronic changes. Soft tissues: No abnormality noted. Lymph nodes: No abnormality noted. No enlarged lymph nodes. IMPRESSION: Moderate diffuse left colitis without complication. ACT 112: N/A Electronically signed by Mary Pabon 02-22-2025 2:10 PM Medications Administered Sodium Chloride (Nss) 1,000 mls @ 125 mls/hr IV .Q8H AZUCENA Stop: 02/25/25 17:44 Last Admin: 02/22/25 17:48 Dose: 125 mls/hr Documented By: CEF Discontinued Medications Dicyclomine HCl (Dicyclomine Hcl 10 Mg/Ml 2 Ml Amp/Vial) 20 mg IM NOW ONE Stop: 02/22/25 17:32 Last Admin: 02/22/25 17:41 Dose: 20 mg Documented By: CEF Sodium Chloride (Nss) 1,000 mls @ 999 mls/hr IV .Q1H1M ONE Stop: 02/22/25 13:56 Last Infusion: 02/22/25 14:19 Dose: Infused Documented By: Admin: 02/22/25 13:04 Dose: 999 mls/hr Documented By: MES Famotidine (Pepcid 20mg Iv Push) 20 mg in 5 mls @ 2.5 mls/min IV NOW STA Stop: 02/22/25 12:57 Last Admin: 02/22/25 13:04 Dose: 2.5 mls/min Documented By: MES Pantoprazole Sodium (Protonix) 40 mg in 10 mls @ 5 mls/min IV NOW ONE Stop: 02/22/25 12:57 Last Admin: 02/22/25 13:04 Dose: 5 mls/min Documented By: MES Acetaminophen (Ofirmev) 1,000 mg in 100 mls @ 400 mls/hr IV NOW STA Stop: 02/22/25 13:10 Last Infusion: 02/22/25 13:19 Dose: Infused Documented By: Admin: 02/22/25 13:04 Dose: 400 mls/hr Documented By: MES Sodium Chloride (Nss) 1,000 mls @ 999 mls/hr IV .Q1H1M ONE Stop: 02/22/25 15:45 Last Infusion: 02/22/25 16:01 Dose: Infused Documented By: Admin: 02/22/25 14:55 Dose: 999 mls/hr Documented By: GRACE Acetaminophen (Ofirmev) 1,000 mg in 100 mls @ 400 mls/hr IV NOW STA Stop: 02/22/25 17:45 Last Admin: 02/22/25 17:50 Dose: Not Given Documented By: CEF Ioversol (Optiray 320 125ml) 120 ml IV ONCE ONE Stop: 02/22/25 13:29 Last Admin: 02/22/25 13:28 Dose: 120 ml Documented By: JAR Morphine Sulfate (Morphine Sulfate 4 Mg/Ml 1 Ml Carp\Vial) 4 mg IV NOW STA Stop: 02/22/25 17:36 Last Admin: 02/22/25 17:46 Dose: 4 mg Documented By: CEF Ondansetron HCl (Ondansetron Inj 2 Mg/Ml 2 Ml Vial) 4 mg IV NOW STA Stop: 02/22/25 12:57 Last Admin: 02/22/25 13:03 Dose: 4 mg Documented By: MES Ondansetron HCl (Ondansetron Inj 2 Mg/Ml 2 Ml Vial) 4 mg IV NOW STA Stop: 02/22/25 17:32 Last Admin: 02/22/25 17:45 Dose: 4 mg Documented By: CEF
[2025-02-22 18:33] LABS: Magnesium 1.9 mg/dl (1.7-2.4)
[2025-02-22] MEDS: POTASSIUM CHLORIDE / WTR 10 MEQ/100 ML PLCT IV SCH (19:22)
[2025-02-22] MEDS: PROMETHAZINE 12.5 MG/50.5 ML BAG IV PRN (19:45)
[2025-02-22] MEDS ORDERED: ALBUTEROL HFA 8 GM INHALER INH PRN (20:31)
[2025-02-22] MEDS: PANTOprazole 40 MG/10 ML SYR IV SCH (21:39)
[2025-02-22] MEDS ORDERED: POTASSIUM CHLORIDE 20 MEQ in SODIUM CHLORIDE 0.9% 1,000 ML IV SCH (23:00)
[2025-02-22] MEDS: NSS + 20MEQ KCL 20 MEQ/1,000 ML BAG IV SCH (23:22)
[2025-02-23 07:42] VITALS: RESP 18
[2025-02-23 07:50] LABS: Hematocrit (blood only) 39.1 % (37.0-47.0); Hemoglobin 12.9 g/dL (12.0-16.0); Immature Granulocytes # (auto) 0.03 K/uL (0.01-0.20); Immature Granulocytes % (auto) 0.4 %; Mean Corpuscular Hemoglobin 27.4 pg (25.0-34.0); Mean Corpuscular Volume 83.0 fL (80.0-100.0); Platelet Count 203 K/uL (130-400); RDW Standard Deviation 38.9 fL (36.4-46.3); Red Blood Count 4.71 M/uL (4.20-5.40); White Blood Count 8.44 K/ul (4.8-10.8)
[2025-02-23] MEDS: ESCITALOPRAM OXALATE 10 MG TAB PO SCH (08:26)
[2025-02-23] MEDS: DICYCLOMINE HCL 20 MG TAB PO PRN (08:26)
[2025-02-23] MEDS: FLUTICASONE PROPIONATE NA SPR 16 GM BTL SCH (08:27)
[2025-02-23 08:28] LABS: Anion Gap 7.0 (3-11); Blood Urea Nitrogen 7.0 mg/dl (6-23); Calcium 8.5 mg/dl (8.6-10.3); Carbon Dioxide 25.0 mmol/L (21-32); Chloride 108.0 mmol/L (98-107); Creatinine Clr Calc Pharmacy 109.6 ml/min; Glucose 88.0 mg/dl (70-99(Fasting)); Magnesium 1.9 mg/dl (1.7-2.4); Potassium 4.1 mmol/L (3.5-5.1); Sodium 140.0 mmol/L (136-145)
[2025-02-23] MEDS: FLUTICASONE FUROATE 100MCG 14 PUFFS/INHALER INH SCH (08:28)
[2025-02-23] MEDS: UMECLIDINIUM/VILANTEROL 62.5/25MCG 7 PUFFS/INHALER INH SCH (08:28)
--- NOTE | 2025-02-23 08:28 | Hospitalist Progress Note ---
Date of Service February 23, 2025 Assessment & Plan (1) Colitis: (2) GI (gastrointestinal bleed): (3) Chronic obstructive pulmonary disease: (4) Anxiety and depression: Plan This is a 54 y/o female with COPD/asthma, IBS, GERD, DJD, RLS, depression, insomnia who presented to the ED on 02/22/2025 with N/V/D for three days and rectal bleeding that started yesterday. Colitis Bloody diarrhea CTAP notes moderate diffuse left colitis without complication Differential includes medication-related due to recent Zepbound dose (higher than usual starting dose), infectious, ischemic (due to hypotension/dehydration); may be multi-factorial Stool studies and C diff pending collection-> no diarrhea since admission H&H stable, continue to monitor Clear liquid diet as tolerated Continue pain medication, antiemetics, antispasmodics PRN GI consulted and recommending continue supportive measures and outpatient colonoscopy in 8 weeks Leukocytosis-> resolved Likely reactive Hypokalemia-> resolved Monitor and replete PRN COPD/Asthma Respiratory status at baseline Continue inhalers and nasal sprays Depression/Insomnia Continue bupropion, escitalopram, trazodone DVT Prophylaxis: SCDs Code Status: FULL CODE PCP: Jalen Ford Disposition: anticipate return home tomorrow Patient seen in collaboration with Dr. Crooks. Please see addendum. I spent a total of 60 minutes coordinating, documenting and providing care for this patient excluding time spent in the performance of separately billed serv ices or time spent by another provider/QHP. Admission and Anticipated Discharge Date Admission Date: February 22, 2025 Supervising Physician Co-Signing Physician Notes Patient is seen and examined at bedside. Reports lower abdominal pain associated with some cramping today. Denies any diarrhea, chest pain, dyspnea, dizziness. Abdominal pain worsens especially with movement. On exam patient is moderately built and nourished, no apparent distress, normocephalic atraumatic, EOMI, normal breath sounds, clear to auscultation, S1-S2, no murmur, no pedal edema, abdomen soft, lower quadrant tenderness without any guarding or rigidity, normal bowel sounds, alert, awake, oriented, grossly no focal deficits. Patient is currently is being managed for colitis and rectal bleed likely ischemic colitis. Will obtain stool studies if she has recurrence of diarrhea to rule out infectious cause. Agree with liquid diet for today. Gastroenterology consulted. Will need outpatient colonoscopy. Replete electrolytes as needed. IV fluids, antiemetics as needed. Will need to be discontinued on Zepbound as recommended by GI. Continue IV fluids. Avoid anticoagulants. I personally interviewed and examined the patient at bedside. I have reviewed the advanced practitioner's documentation on the date of service referred in note and agree with plan. Patient's care is coordinated with Rafia LLANES. Please refer to the documentation above for details of patient's presentation and for discussion of other issues. I spent a total [id number] coordinating, documenting, and providing care for this patient excluding time spent in the performance of separately billed services or time spent by another provider/QHP. Subjective Patient seen resting in bed Reports intermittent lower abdominal stabbing/cramping pain No diarrhea since being in the hospital Denies dizziness, chest pain, SOB, N/V Review of Systems Review of Systems: All systems reviewed & are unremarkable except as noted in HPI & below Physical Exam Physical Exam: General/Psych: WD/WN, sitting up in bed, NAD, conversing easily Head: normocephalic, atraumatic Eyes: normal inspection, PERRL, conjunctivae pink Neck: normal visual inspection, trachea midline Respiratory: normal respiratory effort, lungs clear to auscultation, no wheeze/rales/rhonchi, no accessory muscle use Cardiovascular: regular rate and rhythm, no murmur/rub/gallop Extremities: no cyanosis or clubbing, normal peripheral pulses, no BLE edema Abdomen/GI: normal bowel sounds, soft, tender on palpation of lower quadrants Neurologic/MSK: A+Ox3, motor strength 5/5, moves all extremities Skin: no rashes, normal color, warm and dry Results & Data Results & Data Vital Signs (Past 12 Hours) Vital Signs Temp Pulse Pulse Resp BP BP Pulse Ox 02/23/25 07:41 36.9 C 67 18 105/69 95 02/23/25 02:56 36.5 C 74 14 96/61 L 95 02/22/25 22:49 36.5 C 67 14 116/68 96 02/22/25 21:42 84 02/22/25 20:39 36.5 C 73 18 129/85 97 O2 Del Method 02/23/25 07:41 Room Air 02/23/25 02:56 Room Air 02/22/25 22:49 Room Air 02/22/25 21:42 02/22/25 20:39 Room Air Laboratory Results Short CBC 02/22/25 02/23/25 Range/Units 12: 07:03 WBC 13.71 H 8.44 (4.8-10.8) K/ul Hgb 15.6 12.9 (12.0-16.0) g/dL Hct 46.5 39.1 (37.0-47.0) % Plt Count 312 203 (130-400) K/uL BMP 02/22/25 12:28 Sodium 138 Potassium 3.4 L Chloride 100 Carbon Dioxide 24 BUN 9 Creatinine 0.84 Glucose 118 H Calcium 10.0 Liver Function 02/22/25 Range/Units 12:28 Total Bilirubin 0.5 (0.2-1.0) mg/dl Direct Bilirubin 0.1 (0-0.2) mg/dl AST 16 (13-39) U/L ALT 14 (7-52) U/L Alkaline Phosphatase 76 (34-104) U/L Albumin 4.6 (3.4-5.0) gm/dl I have independently reviewed and interpreted patient's labs including CBC, BMP, mag, phos. Medications Administered Current Inpatient Medications Albuterol (Albuterol Hfa 8 Gm Inhaler) 2 puffs INH Q4H PRN PRN Reason: shortness of breath or wheezing Stop: 03/24/25 20:30 Bupropion HCl (Bupropion Xl 150 Mg Tabcr) 150 mg PO QAM AZUCENA Stop: 03/25/25 08:59 Dicyclomine HCl (Dicyclomine Hcl 20 Mg Tab) 20 mg PO TID PRN PRN Reason: Cramping Stop: 03/24/25 20:59 Escitalopram Oxalate (Escitalopram Oxalate 10 Mg Tab) 10 mg PO DAILY AZUCENA Stop: 03/25/25 08:59 Fluticasone Furoate (Fluticasone Furoate 100mcg 14 Puffs/Inhaler) 1 puffs INH DAILY AZUCENA Stop: 03/25/25 08:59 Fluticasone Propionate (Fluticasone Propionate Na Spr 16 Gm Btl) 2 sprays NA DAILY AZUCENA Stop: 03/25/25 08:59 Hydromorphone HCl (Hydromorphone Inj 0.5 Mg/0.5 Ml Syr) 0.5 mg IV Q6H PRN PRN Reason: Severe Pain (Scale 7, 8, 9,10) Stop: 03/08/25 18:49 Promethazine HCl (Phenergan) 12.5 mg in 50.5 mls @ 202 mls/hr IV Q6H PRN PRN Reason: Nausea And Vomiting Stop: 03/24/25 18:44 Last Infusion: 02/22/25 20:00 Dose: Infused Potassium Chloride/Sodium Chloride (Normal Saline W/20 Meq Kcl) 20 meq in 1,000 mls @ 100 mls/hr IV .Q10H [facility] Stop: 02/23/25 18:59 Last Admin: 02/22/25 23:22 Dose: 100 mls/hr Pantoprazole Sodium (Protonix) 40 mg in 10 mls @ 5 mls/min IV BID AZUCENA Stop: 03/24/25 20:59 Last Admin: 02/22/25 21:39 Dose: 5 mls/min Ondansetron HCl (Ondansetron Inj 2 Mg/Ml 2 Ml Vial) 4 mg IV Q6H PRN PRN Reason: Nausea Stop: 03/24/25 20:30 Trazodone HCl (Trazodone Hcl 100 Mg Tab) 100 mg PO HS [facility] Stop: 03/24/25 20:59 Last Admin: 02/22/25 21:39 Dose: 100 mg Umeclidinium/Vilanterol (Umeclidinium/Vilanterol 62.5/25mcg 7 Puffs/Inhaler) 1 puffs INH DAILY [facility] Stop: 03/25/25 08:59
[2025-02-23] MEDS ORDERED: NON-FORMULARY MEDICATION (Fluticasone-Umeclidin-Vilanter [Trelegy Ellipta] 100-62.5-25 mcg INH SCH (09:00)
[2025-02-23] MEDS: HYDROmorphone INJ 0.5 MG/0.5 ML SYR IV PRN (12:11)
--- NOTE | 2025-02-23 12:16 | Gastrointestinal Consultation ---
Date of Consultation February 23, 2025 Assessment & Plan (1) Colitis: (2) Nausea and vomiting: (3) Abdominal pain: Plan [id number] with h/o asthma, COPD and obesity is seen today for 4-5 days of N/V that developed after starting Zepbound 5mg/week and then a 1 day history of cramping bloody stools on 02/21/25. Her CT scan revealed left sided colitis. Stool PCR and C.diff haven't been collected d/t no BMs since 02/21. Her cramping and N/V have been improving. (1) Acute Nausea and vomiting x 4-5 days. 1 day of bloody stools 02/21/25. Left sided colitis on CT scan 02/22/25. - Suspect nausea and vomiting is d/t Zepbound being started at 5mg/day (typically start at 2.5mg/week). - Continue with supportive care with PPI therapy, anti-emetics and fluids as needed. Clinically she reports this is improving. She plans to no longer take Zepbound. If she were I would recommend starting at 2.5mg once she had several weeks of symptom resolution. - In regards to bloody bowel movements and colitis. This clinically sounds most consistent with an ischemic colitis r/t hypotension/dehydration from vomiting. - I would continue to treat with supportive measures and expect this to continue to improve as it has been. - Recommend f/u Colonoscopy as outpatient in about 8 weeks. - Thank you for allowing us to participate in the care of this patient. Please call with any acute changes, questions or concerns. Please see addendum below with additional recommendation from my supervising physician. Supervising Physician Co-Signing Physician Notes Patient seen and examined and agree with MAURA Hernandez as above Abd: Soft, NT, ND, +BS Continue current therapy and supportive care. Plan to repeat colonoscopy in 6-8 weeks following resolution of presumed ischemic colitis. History of Present Illness Reason for Consultation: Rectal Bleeding. Colitis. Attending Physician: Eladio Crooks MD History of Present Illness [id number] with h/o COPD, Hiatal hernia, asthma is seen today for initial GI con sultation for reports of nausea, vomiting and bloody stools. She reports that she started having vomiting last Sunday after she took her second shot of Zepbound 5mg/week. She notes that her insurance wouldn't cover 2.5mg/week so she went directly to 5mg/week. She would have vomiting for a few hours after eating then would be fine. Then on Sunday she developed abdominal cramping but was unable to pass a bowel movement. After about 1 hour of attempting to have a bowel movement she had a large bloody bowel movement. Then about an hour later she had incontinence of red bloody stool. Her vomiting remained into yesterday (Sunday). She has not had a bowel movement since Sunday. She was evaluated at [facility] - She was notable to have mild leukocytosis with WBC 13.71. No anemia. Lipase and LFTs normal 02/22. Labs today 02/23/29. Lipase mildly elevated at 163. Na 140, K4.1, CL 108, CO2 25, BUN 7, Cr. 0.68, Glucose 88, Hgb 12.9, Hct 39.1, WBC 8.44, Plt 203. Stool PCR and C.diff were ordered but she has been able to produce a stool sample. CT abd/pelvis 02/22/25 - revealed diffuse left sided colitis. Today she notes that her abdominal cramping is improving. No vomiting today. She denies any fevers, chills, melena, hematochezia. Family history - No IBD, Celiac or CRC. Social History - No tobacco, NSAID or alcohol use. Surgical history - Last Colonoscopy is about 6 years ago at [facility]. She states it was reportedly negative. Pertinent Diagnostics - Labs as noted above. 02/23/25 Aorta: No acute change noted. No thoracic aortic aneurysm or dissection. Celiac trunk and mesenteric arteries: No acute change noted. No occlusion or significant stenosis. Renal arteries: No acute change noted. No occlusion or significant stenosis. Iliac arteries: No acute change noted. No occlusion or significant stenosis. Lung bases: No abnormality noted. No mass. No consolidation. ABDOMEN: Liver: No abnormality noted. No mass. Gallbladder and bile ducts: No abnormality noted. No calcified stones. No ductal dilation. Pancreas: No abnormality noted. No ductal dilation. No mass. Spleen: No abnormality noted. No splenomegaly. Adrenals: No abnormality noted. No mass. Kidneys and ureters: No abnormality noted. No hydronephrosis. No solid mass. Stomach and bowel: There is moderate thickening of the entire descending colon with mild to moderate surrounding inflammation. Moderate stool right colon. No obstruction. No acute gastrointestinal hemorrhage noted during his (arterial phase imaging performed). PELVIS: Appendix: Well seen and appears normal. Bladder: No abnormality noted. No mass. Reproductive: No acute abnormality noted. ABDOMEN and PELVIS: Intraperitoneal space: No abnormality noted. No significant fluid collection. No free air. Bones/joints: No acute or atypical chronic changes. Soft tissues: No abnormality noted. Lymph nodes: No abnormality noted. No enlarged lymph nodes. IMPRESSION: Moderate diffuse left colitis without complication. Allergies Allergy/AdvReac Type Severity Reaction Status Date / Time codeine Allergy Intermediate Hives, Verified 02/22/25 18:09 ITCHY AND HEADACHE metronidazole AdvReac Intermediate NAUSEA AND Verified 02/22/25 18:09 VOMITING Home Medications Medication Instructions Recorded Confirmed Type albuterol sulfate 90 mcg/actuation 2 inh inhalation Q4H PRN shortness 06/09/20 02/22/25 Rx aerosol inhaler of breath or wheezing #8.5 grams fluticasone fur. 100 mcg-umeclid 1 inh inhalation QAM 12/05/22 02/22/25 History 62.5 mcg-vilant 25 mcg inhalat.powder (Trelegy Ellipta) trazodone 100 mg tablet 100 mg PO HS 12/05/22 02/22/25 History albuterol sulfate 2.5 mg/3 mL 2.5 mg inhalation DIRECTED PRN 02/22/25 History (0.083 %) solution for nebulization Shortness Of Breath Or Wheezing azelastine 205.5 mcg (0.15 %) 1 spray intranasal BID 02/22/25 02/22/25 History nasal spray benzonatate 100 mg capsule 100 mg PO TID PRN Cough 02/22/25 02/22/25 History bupropion HCl 150 mg 24 hr tablet, 150 mg PO QAM 02/22/25 02/22/25 History extended release cyclobenzaprine 10 mg tablet 10 mg PO TID PRN MUSCLE SPASMS 02/22/25 02/22/25 History escitalopram oxalate 10 mg tablet 10 mg PO DAILY 02/22/25 02/22/25 History fluticasone propionate 50 2 spray intranasal DAILY 02/22/25 02/22/25 History mcg/actuation nasal spray,suspension naproxen 500 mg tablet 500 mg PO BID PRN Pain 02/22/25 02/22/25 History tirzepatide (weight loss) 7.5 3.75 mg subcut WK 02/22/25 02/22/25 History mg/0.5 mL subcutaneous pen injector (Zepbound) Patient History Medical History Acid reflux disease Temporomandibular joint disorder per pt is slight, no device Anxiety and depression Migraine Chronic obstructive pulmonary disease per pt is well controlled with inhaler daily/prn Insomnia Hiatal hernia Peripheral eosinophilia Surgical History History of cataract surgery rt Nausea and vomiting after administration of anesthetic agent History of endometrial ablation History of open reduction and internal fixation (ORIF) procedure clavicle fx repair--hardware in place History of arthroscopy of right knee History of colonoscopy History of partial hysterectomy History of left oophorectomy History of cholecystectomy History of wisdom tooth extraction History of tooth extraction History of sinus surgery History of tonsillectomy and adenoidectomy History of detached retina repair right eye Family History Mother Family history of reaction to anesthesia nausea/vomiting Social History Smoking Status: Never smoker Second Hand Exposure: No; Do You Dip or Chew Tobacco: No; Hx Alcohol Use: No Hx Substance Use: No Preferred Language: Ukrainian Communication Ability: Effective Changer Fixer Required: No Beliefs That Will Affect Care: None marital status: Single Current Living Situation: Family Current Living Situation Comment: daughter Feels Safe at Home: Yes Safety Concerns: Feels Safe At This Time Assistive Devices: None Review of Systems Review of Systems: See HPI Physical Exam Physical Exam: Constitutional: NAD. Alert. Answering questions appropriately. Respiratory: Breathing is even, non-labored. Lungs giron are clear to auscultation anteriorly. Cardiovascular: Regular Rate and Rhythm, no murmurs, rubs or gallops appreciated. Gastrointestinal (Abdomen): Normoactive bowel sounds x4, soft, non-distended, non-tender. Musculoskeletal: Lying in bed comfortably. No peripheral edema. Results & Data Vital Signs (Past 12 Hours) Vital Signs Temp Pulse Pulse Resp BP BP Pulse Ox 02/23/25 11:39 98.8 F 64 18 102/66 98 02/23/25 07:41 98.4 F 67 18 105/69 95 02/23/25 07:00 65 02/23/25 02:56 97.7 F 74 14 96/61 L 95 O2 Del Method 02/23/25 11:39 Room Air 02/23/25 07:41 Room Air 02/23/25 07:00 02/23/25 02:56 Room Air PG Care Time/CCT Total # of Minutes Spent Total Time Spent with Patient: Total time spent is greater than 50% in coordination of care (as documented) at patient's floor/unit and/or counseling patient: Coding Level of Care Code 79626 IN/OBS CONSULT LVL 3,45M Diagnoses Colitis K52.9 Nausea and vomiting R11.2 Abdominal pain R10.9
[2025-02-23] MEDS: ONDANSETRON INJ 2 MG/ML 2 ML VIAL IV PRN (13:55)
[2025-02-23 14:50] LABS: Hematocrit (blood only) 37.2 % (37.0-47.0); Hemoglobin 12.3 g/dL (12.0-16.0)
[2025-02-23 19:36] LABS: Cdiff Toxin B Gene (2yr or >) Negative Cdiff Gene (Neg)
[2025-02-23 20:09] LABS: Adenovirus F 40/41 PCR Not Detected (NotDetected); Campylobacter PCR Not Detected (NotDetected); Enteroaggregative E.coli(EAEC) Not Detected (NotDetected); Shiga-like Toxin E.coli (STEC) Not Detected (NotDetected); Vibrio species PCR Not Detected (NotDetected)
[2025-02-24 07:51] VITALS: TEMP 97.9; O2SAT 96
[2025-02-24 09:51] LABS: Hematocrit (blood only) 38.9 % (37.0-47.0); Hemoglobin 12.9 g/dL (12.0-16.0); Mean Corpuscular Hemoglobin 27.5 pg (25.0-34.0); Mean Corpuscular Volume 82.9 fL (80.0-100.0); Platelet Count 204 K/uL (130-400); RDW Standard Deviation 38.2 fL (36.4-46.3); Red Blood Count 4.69 M/uL (4.20-5.40); White Blood Count 7.44 K/ul (4.8-10.8)
--- NOTE | 2025-02-24 09:59 | Gastroenterology Progress Note ---
Date of Service February 24, 2025 Assessment & Plan (1) Colitis: Plan: -Continue to advance diet as tolerated -Offered Miralax to encourage bowel movement, but patient would prefer to wait for bowel function to return as she advances her diet. -Plan for outpatient colonoscopy in 6-8 weeks; Our office will contact patient to arrange. Admission and Anticipated Discharge Date Admission Date: February 22, 2025 Subjective Patient is a 54 yo female with suspected ischemic colitis. She notes she is feeling better. She advanced her diet to solids this morning and is tolerating this. She has not moved her bowels for several days, but she does not feel like she needs any medications to encourage movement at this time. She denies rectal bleeding today. She notes improvement of her abdominal discomfort. No other changes noted. She tells me she is being discharged today. Stool PCR negative. Review of Systems Gastrointestinal: + constipation; no abdominal pain, no di arrhea/loose stools and no blood in stools Physical Exam Constitutional: well developed Respiratory: normal respiratory effort Gastrointestinal (Abdomen): soft, nontender; normoactive sounds Psychiatric: Orientation: alert and oriented x 3 Results & Data Results & Data Vital Signs (Past 12 Hours) Vital Signs Temp Pulse Pulse Resp BP Pulse Ox O2 Del Method 02/24/25 07:50 36.6 C 70 18 118/74 96 Room Air 02/24/25 05:34 72 02/24/25 03:01 36.4 C L 65 18 102/61 95 Room Air 02/23/25 22:30 69 02/23/25 22:27 36.8 C 60 18 100/61 96 Room Air PG Care Time/CCT Total # of Minutes Spent Total Time Spent with Patient: Total time spent is greater than 50% in coordination of care (as documented) at patient's floor/unit and/or counseling patient: Coding Level of Care Code 79410 SUB INP/OBS CARE 2/35MIN Diagnoses Colitis K52.9
[2025-02-24 10:07] LABS: Anion Gap 7.0 (3-11); Blood Urea Nitrogen 7.0 mg/dl (6-23); Calcium 9.0 mg/dl (8.6-10.3); Carbon Dioxide 29.0 mmol/L (21-32); Chloride 103.0 mmol/L (98-107); Creatinine Clr Calc Pharmacy 100.8 ml/min; Glucose 111.0 mg/dl (70-99(Fasting)); Potassium 4.1 mmol/L (3.5-5.1); Sodium 139.0 mmol/L (136-145)
--- NOTE | 2025-02-24 10:17 | Discharge Summary ---
Discharge Summary Date of Service February 24, 2025 Principal Dx & Hospital Course #1 = Principal Diagnosis (1) Colitis: (2) GI (gastrointestinal bleed): (3) Chronic obstructive pulmonary disease: (4) Anxiety and depression: Plan This is a 54 y/o female with COPD/asthma, IBS, GERD, DJD, RLS, depression, insomnia who presented to the ED on 02/22/2025 with N/V/D for three days and rectal bleeding that started yesterday. Colitis Bloody diarrhea CTAP notes moderate diffuse left colitis without complication Differential includes medication-related due to recent Zepbound dose (higher than usual starting dose), infectious, ischemic (due to hypotension/dehydration); may be multi-factorial Stool studies and cdiff negative H&H stable tolerated diet, advanced to low fiber this a.m. and did well GI following and recommending outpatient colonoscopy in 6-8 weeks, their office will contact patient Leukocytosis-> resolved Likely reactive Hypokalemia-> resolved COPD/Asthma Respiratory status at baseline Continue inhalers and nasal sprays Depression/Insomnia Continue bupropion, escitalopram, trazodone DVT Prophylaxis: SCDs Code Status: FULL CODE PCP: Jalen Ford Disposition: discharge to home today Patient seen in collaboration with Dr. Crooks. Please see addendum. Notes For Next Care Provider Ensure patient has GI follow up for colonoscopy in 6-8 weeks. Medication Changes From Visit Bentyl 10mg po TID prn Admission HPI Per Admitting Provider This is a 54 y/o female with COPD/asthma, IBS, GERD, DJD, RLS, and other history as outlined below who presented to the ED today with N/V/D for three days and rectal bleeding that started yesterday. She reports that she recently started Zepbound and took her second dose on 02/19. Within twelve hours, she developed nausea and vomiting. By the next day 02/20, she developed significant abdominal cramping and diarrhea. Yesterday 02/21, she started with rectal bleeding that she describes as bright red, may have clots. Today, she reports rectal bleeding even when she sits down to urinate. Bowel movements have ranged from diarrhea to formed stool. The abdominal pain is described as sharp cramping, mostly in the lower abdomen and around to the right flank area. She continues with nausea, improved but not resolved with meds in the ED. Any oral intake results in upper abdominal burning and regurgitation. She has continued to have intermittent vomiting, did not notice any blood in the emesis until this afternoon in the ED. She has not been able to tolerate oral intake since her symptoms started, and now feels generally weak and lightheaded. She did have some nausea and vomiting after her first dose of Zepbound, but nothing this severe. She denies prior history of PUD, IBD or GI bleed. She does not routinely take NSAIDs. She saw PCP earlier in January for COPD exacerbation which was treated with prednisone and azithromycin. Her respiratory status is back to baseline. No sick contacts with similar symptoms. Colonoscopy 04/19/21 normal examined TI and colon. Repeat in 5 years (first- degree relative with colon polyps) Admission Exam Per Admitting Provider General: awake, alert, appears uncomfortable, frequently shifting positions to try to get comfortable HEENT: no scleral icterus, mildly dry oral mucosa Neck: supple, trachea midline Heart: RRR, no M/G/R Lungs: CTA bilaterally Abdomen: soft, +BS, mild lower abdominal tenderness, no guarding or rebound Skin: warm, dry, no jaundice, +mildly delayed skin turgor Extremities: distal pulses intact and equal, no pedal edema Neurologic: Ox3, no confusion or dysarthria, moving all extremities, no focal deficits Discharge Exam Gen: WD/WN, NAD, A&O x3 HEENT: Normocephalic, atraumatic, conjunctivae moist, sclerae anicteric, mucous membranes moist. Lung: Clear to Auscultation bilaterally, no wheezes/rales/rhonchi Heart: Regular rate, regular rhythm, no murmurs, rubs, or gallops Abdomen: Soft, NT, ND +BS x 4 Extremities: No edema Skin: Warm, no rash, negative turgor. Updated Medication List Medication Instructions Recorded Confirmed Type albuterol sulfate 90 mcg/actuation 2 inh inhalation Q4H PRN shortness 06/09/20 02/22/25 Rx aerosol inhaler of breath or wheezing #8.5 grams fluticasone fur. 100 mcg-umeclid 1 inh inhalation QAM 12/05/22 02/22/25 History 62.5 mcg-vilant 25 mcg inhalat.powder (Trelegy Ellipta) trazodone 100 mg tablet 100 mg PO HS 12/05/22 02/22/25 History albuterol sulfate 2.5 mg/3 mL 2.5 mg inhalation DIRECTED PRN 02/22/25 02/22/25 History (0.083 %) solution for nebulization Shortness Of Breath Or Wheezing azelastine 205.5 mcg (0.15 %) 1 spray intranasal BID 02/22/25 02/22/25 History nasal spray benzonatate 100 mg capsule 100 mg PO TID PRN Cough 02/22/25 02/22/25 History bupropion HCl 150 mg 24 hr tablet, 150 mg PO QAM 02/22/25 02/22/25 History extended release cyclobenzaprine 10 mg tablet 10 mg PO TID PRN MUSCLE SPASMS 02/22/25 02/22/25 History escitalopram oxalate 10 mg tablet 10 mg PO DAILY 02/22/25 02/22/25 History fluticasone propionate 50 2 spray intranasal DAILY 02/22/25 02/22/25 History mcg/actuation nasal spray,suspension dicyclomine 20 mg tablet 20 mg PO TID PRN abdominal pain 02/24/25 Rx #30 tabs Hospital Stay Data Consultations 02/22/25 18:06 ED Decision to Admit Stat 02/22/25 20:31 Consult Gastroenterology Routine Assessment & Plan (1) Colitis: Plan: -Continue to advance diet as tolerated -Offered Miralax to encourage bowel movement, but patient would prefer to wait for bowel function to return as she advances her diet. -Plan for outpatient colonoscopy in 6-8 weeks; Our office will contact patient to arrange. Diagnostic Imagining Performed Abdomen/Pelvis CTA 02/22/25 12:56 EXAM: CT Angiography Abdomen and Pelvis With Intravenous Contrast INDICATION: Lower abdominal pain and rectal bleeding. TECHNIQUE: Axial computed tomographic angiography images of the abdomen and pelvis with intravenous contrast. Sagittal and coronal reformatted images were created and reviewed. This CT exam was performed using one or more of the following dose reduction techniques: automated exposure control, adjustment of the mA and/or kV according to patient size, and/or use of iterative reconstruction technique. MIP reconstructed images were created and reviewed. CONTRAST: 120 ml of Optiray 320 was administered intravenously. COMPARISON: No relevant prior studies available. FINDINGS: VASCULATURE: Aorta: No acute change noted. No thoracic aortic aneurysm or dissection. Celiac trunk and mesenteric arteries: No acute change noted. No occlusion or significant stenosis. Renal arteries: No acute change noted. No occlusion or significant stenosis. Iliac arteries: No acute change noted. No occlusion or significant stenosis. Lung bases: No abnormality noted. No mass. No consolidation. ABDOMEN: Liver: No abnormality noted. No mass. Gallbladder and bile ducts: No abnormality noted. No calcified stones. No ductal dilation. Pancreas: No abnormality noted. No ductal dilation. No mass. Spleen: No abnormality noted. No splenomegaly. Adrenals: No abnormality noted. No mass. Kidneys and ureters: No abnormality noted. No hydronephrosis. No solid mass. Stomach and bowel: There is moderate thickening of the entire descending colon with mild to moderate surrounding inflammation. Moderate stool right colon. No obstruction. No acute gastrointestinal hemorrhage noted during his (arterial phase imaging performed). PELVIS: Appendix: Well seen and appears normal. Bladder: No abnormality noted. No mass. Reproductive: No acute abnormality noted. ABDOMEN and PELVIS: Intraperitoneal space: No abnormality noted. No significant fluid collection. No free air. Bones/joints: No acute or atypical chronic changes. Soft tissues: No abnormality noted. Lymph nodes: No abnormality noted. No enlarged lymph nodes. IMPRESSION: Moderate diffuse left colitis without complication. ACT 112: N/A Electronically signed by Mary Pabon 02-22-2025 2:10 PM Pending Results Patient Have Any Pending Studies at Discharge: No Discharge Instructions Given to Patient (Per Discharging Provider) MEDICATION CHANGES: * Stop the use of Zepbound. * Please continue all other medications. SUMMARY OF TEST RESULTS: You were admitted to the hospital nausea, vomiting and diarrhea along with rectal bleeding. CT scan on admission revealed a diffuse left sided colitis (inflammation of colon). It was felt this was secondary to the use of Zepbound and it is strongly encouraged for you to discontinue this. Your stool culture was negative for any infectious or viral causes of your symptoms. PENDING TEST RESULTS: None RECOMMENDATIONS FOR FOLLOW-UP: Please follow up with your primary care provider as scheduled. You will need a colonoscopy in 6-8 weeks. [facility] will call you to schedule an appointment. If you do not hear from them in 1 week, please contact their office. It is recommended that you slowly advance your diet as tolerated. Please start with soft foods and bland diet until you feel back to baseline. Please stay well hydrated with non caffeinated beverages, like water. Avoid medications like ibuprofen, aleve, motrin, advil or naproxen as this can increase your risk of gastrointestinal bleeding. OTHER INSTRUCTIONS: Seek medical attention if you have: * temperature above 101 * chest pain or trouble breathing * abdominal pain, nausea, vomiting * diarrhea, dark stools or bloody stools * any unanswered questions or concerns Call 911 if symptoms are severe. Please take good care of yourself. It has been a pleasure taking care of you. Please take care of yourself. If you have any questions regarding your recent hospitalization please contact [facility] and request Loretta Oro @ [phone]. Total Time Total Time Spent Total Time Spent (In Minutes): 45 minutes Supervising Physician Co-Signing Physician Notes Patient is seen and examined at bedside. States feeling a lot better today. Abdominal pain improved. Tolerated diet with no issues. No recurrence of rectal bleed. On exam patient is moderately built and nourished, no apparent distress, normocephalic atraumatic, EOMI, normal breath sounds, clear to auscultation, S1-S2, no murmur, no pedal edema, abdomen soft, lower quadrant tenderness without any guarding or rigidity, normal bowel sounds, alert, awake, oriented, grossly no focal deficits. Patient is currently is being managed for colitis and rectal bleed likely ischemic colitis. Stool PCR, stool for C. difficile negative. Tolerating low fiber diet. Appreciate GI input. Advised to get colonoscopy as outpatient. Hemoglobin stable. Advised to increase oral fluid intake. Discontinued Zepbound on discharge. Advised to avoid NSAIDs. I personally interviewed and examined the patient at bedside. I have reviewed the advanced practitioner's documentation on the date of service referred in note and agree with plan. Patient's care is coordinated with Rafia LLANES. Please refer to the documentation above for details of patient's presentation and for discussion of other issues. I spent a total [id number] coordinating, docume nting, and providing care for this patient excluding time spent in the performance of separately billed services or time spent by another provider/QHP.
[2025-02-24 10:39] VITALS: BP 96/61; PULSE 79
== END 2025-02-24 11:03 | disposition home or self-care (01) ==
LOC: ED 12:12 → 2N 18:44 → INTOOBSV 18:44 → SUATTDRO 18:44 → 2N 19:38